=== PATIENT | female | born 1975 | race Two or more races ===

== ENCOUNTER 2024-11-04 04:30 | Emergency (ER) | payer BC, SELFPAY ==
[2024-11-04 04:45] VITALS: BP 130/91; PULSE 105; RESP 18; TEMP 37.2; O2SAT 98
--- NOTE | 2024-11-04 04:51 | EKG_ITS ---
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
--- NOTE | 2024-11-04 04:51 | PD.EDRME ---
Rapid Medical Screening Exam RME Arrival date/time: 11/04/24 04:30 Chief Complaint: Nausea/Vomiting/Diarrhea Vital signs: Vital Signs Temperature 99 F 11/04/24 04:45 Pulse Rate 105 H 11/04/24 04:45 Respiratory Rate 18 11/04/24 04:45 Blood Pressure 130/91 H 11/04/24 04:45 Pulse Oximetry (%) 98 11/04/24 04:45 RME Narrative: Nausea and vomiting x1 month, mild epigastric pain. hx HTN, prediabetes.
[2024-11-04] MEDS: ONDANSETRON ODT 4 MG TABRAP PO (05:02)
[2024-11-04 06:03] LABS: Basophils % (Auto) 0 % (0-2.5); Eosinophils % (Auto) 0 % (0-10); Hematocrit 37.8 % (36.0-46.0); Hemoglobin 13.1 g/dL (12.0-16.0); Immature Granulocytes % (Auto) 1 % (0-0); Lymphocytes % (Auto) 11 % (10-50); Mean Corpuscular HGB Conc 34.7 g/dl (31.0-37.0); Mean Corpuscular Hemoglobin 29.4 pg (25.0-35.0); Mean Corpuscular Volume 85 fL (80-100); Monocytes # (Auto) 0.4 Thou/mm3 (0.0-0.8); Monocytes % (Auto) 5 % (0-12); Neutrophils # (Auto) 7.6 Thou/mm3 (1.8-7.7); Neutrophils % (Auto) 83 % (37-80); Nucleated Red Blood Cell % 0 /100 WBC (0); Platelet Count 303 Thou/mm3 (140-440); RDW Standard Deviation 41.5 fL (36.4-46.3); Red Blood Count 4.45 Miln/mm3 (4.00-5.20); White Blood Count 9.1 Thou/mm3 (3.6-11.0)
[2024-11-04 06:29] LABS: Alanine Aminotransferase 25 U/L (10-49); Albumin/Globulin Ratio 1.4 (1.2-2.2); Alkaline Phosphatase 127 U/L (46-116); Anion Gap 15 (7-16); Aspartate Amino Transferase 22 U/L (0-34); BUN/Creatinine Ratio 11 Ratio (12-20); Bilirubin,Total 0.8 mg/dL (0.3-1.2); Blood Urea Nitrogen 17 mg/dL (9-23); Calcium 10.3 mg/dL (8.3-10.6); Calcium (Corrected) 10.3 mg/dL (8.5-10.1); Carbon Dioxide 21.8 mMol/L (20.0-31.0); Chloride 105 mMol/L (98-107); Creatinine (Component) 1.5 mg/dL (0.6-1.3); Globulin 3.6 gm/dL (2.3-3.5); Glucose 178 mg/dL (74-106); Lipase 319 U/L (12-53); Osmolality,Calculated 288 (275-295); Potassium 2.8 mMol/L (3.4-5.1); Sodium 142 mMol/L (136-145); Total Protein 8.6 gm/dL (5.7-8.2); Troponin I < 0.020 ng/mL (0.0-0.045); eGFR 43 See Note
[2024-11-04 06:34] LABS: Collection Type, Urine Clean Catch
--- NOTE | 2024-11-04 06:56 | PD.EDNV ---
Nausea/Vomit./Diarrhea-RME/HPI General Chief complaint: Nausea/Vomiting/Diarrhea Stated complaint: VOMITING Time Seen by Provider: 11/04/24 05:09 Arrival date/time: 11/04/24 04:30 RME / HPI RME / HPI Narrative: DR. ENCARNACION MAIN ED EVALUATION: Patient is a 41-year-old who states for over 1 months she has had intractable nausea and vomiting and states that she vomits even water as soon as she drinks it along with any food. She has been unsuccessful holding anything down and believes she has lost weight. She is also reported having a fever for couple days with several bouts intermittently during this time. She says she was sick a couple months ago with a slight cough and occasionally is a cough even now. She has central abdominal pain that is not getting better. She has no medical workup for this to this date. There is been no blood in the vomit. She continues to pee and believes she is actually peeing a lot. Related Data Home Medications ?Medication ?Instructions ?Recorded ?Confirmed amlodipine 5 mg tablet 5 mg PO QDAY 02/02/24 05/07/24 metoprolol succinate 100 mg 100 mg PO QDAY 02/02/24 05/07/24 tablet,extended release 24 hr naproxen 500 mg tablet,delayed 500 mg PO BID 02/02/24 05/07/24 release (EC-Naproxen) norgestrel 0.3 mg-ethinyl 1 tab PO QDAY 02/02/24 05/07/24 estradiol 30 mcg tablet (Low-Ogestrel (28)) tizanidine 6 mg capsule 6 mg PO BID PRN Pain, Mild 02/02/24 05/07/24 Held on 05/01/24. Instructions: Resume on 05/02/24. Allergies Allergy/AdvReac Type Severity Reaction Status Date / Time No Known Allergies Allergy Verified 11/04/24 04:31 Review of Systems Review of Systems Systems Reviewed: All systems reviewed, normal except as documented Narrative Review of Systems: Constitutional: POSITIVES: weight loss (see HPI), fevers Eyes: DENIES: loss of vision; Head/Ear/Nose: DENIES: loss of hearing. Throat: DENIES: dysphagia. Cardiovascular: DENIES: chest pain, dyspnea, or syncope. Respiratory: POSITIVES: slight cough DENIES: shortness of breath; Gastrointestinal: POSITIVES: nausea, vomiting, central abdominal pain DENIES: rectal bleeding or melena. Genitourinary: DENIES: dysuria (painful or difficult urination); Musculoskeletal: DENIES: arthralgia (pain in a joint); Skin: DENIES: rash; Neurological: DENIES: loss of function or movement; Psychiatric: DENIES: recent major life stressor, emotional problem, illicit drug use or abuse; Endocrinology: DENIES: weight change,; Hematologic/Lymphatic: DENIES: abnormal bruising. Allergic/Immunologic: DENIES: urticaria (hives). Past Medical History Past Medical History NEUROLOGIC: Positive Neurological Disorders and Migraine; Negative Seizures CARDIAC: Positive Cardiac Disorders, Hypercholesterolemia and Hypertension; Negative Congestive Heart Failure RESPIRATORY: Negative Chronic Obstructive Pulmonary Disease (COPD) GASTROINTESTINAL: Negative Gastrointestinal Disorders GENITOURINARY: Negative Genitourinary Disorders or Renal Disease REPRODUCTIVE: Positive Previous Pregnancies MUSCULOSKELETAL: Positive Musculoskeletal Disorders and Arthritis ENDOCRINE: Negative Endocrine Disorders, Diabetes Mellitus Type 1 or Diabetes Mellitus Type 2 HEMATOLOGIC: Negative Blood Disorders OTHER HISTORY: Positive Chicken Pox; Negative Autoimmune Disease, Blood Transfusions, Anesthesia Reactions, Measles, Mumps or Cancer Surgical History SURGICAL: Positive Oral Surgery (wisdom x4 extraction) Social History SMOKING STATUS: Never smoker SUBSTANCE USE: does not use ALCOHOL: Never ED Exam Narrative Physical exam: Physical Exam: General: The vital signs were reviewed. Patient is actively retching with a barf bag in place when I entered the room. the patient is non-toxic, in no apparent distress and appears healthy with a patent airway, no respiratory distress and has no apparent circulatory problems. Head & Scalp: Normocephalic, atraumatic. Face: Appears normal and is without lesions, deformity. Ears: Left external pinna appears normal. Right external pinna appears normal. Eyes: The sclera is anicteric. No obvious photophobia. The Left and Right Orbit/Lid/Conjunctiva appears normal without swelling, discoloration or injection. Nose: The nose is without deformity, discharge or tenderness; Throat: Appears normal. The mucous membranes are pink and moist without exudates, redness or mass seen. The tongue appears normal. Neck: The neck is supple and no apparent mass or adenopathy. Chest: The chest wall is normal in size and symmetry and has no chest wall tenderness or crepitus. The patient displays normal ventilator effort without retractions, accessory muscle use and has adequate air movement bilaterally with no wheezes and no rales. Cardiovascular: Regular rate and rhythm; No murmurs, rubs, or gallops; Gastrointestinal: The abdomen appears normal. No obvious hernias or mass. The abdomen has exquisite central epigastric pain on palpation is soft and benign, non-distended, with no pain, no guarding and no rebound tenderness. Bowel sounds are present and normal sounding. No CVA tenderness. Genitourinary: Back/Spine: Normal inspection nontender Extremities/Musculoskeletal/lymphatic: The bilateral upper and lower extremities are warm. There is no evidence of arterial insufficiency. There is no evidence of venous insufficiency/edema. The patient spontaneously moves bilateral upper and lower extremities with no pain and no limitation of movement. There is no apparent, injury or trauma. Skin: The skin is warm, dry and intact. No rashes. No petechia. No purpura. No abnormal bruising. The color is appropriate with no cyanosis. Mental status/Psychiatric: Mental status is appropriate for age. The patient has no apparent delusions, visual hallucinations, no apparent audible hallucinations. The patient has no apparent suicidal thoughts/ideation and no apparent homicidal thoughts/ideation. Neurological: The patient is awake, alert, interactive, cordial, cooperative and is oriented to name and situation. The patient follows commands and answers historical question with no impairment. There is no visual disturbance apparent. The pupils are equal and reactive bilaterally with normal eye movements and no diplopia The bilateral upper and lower extremities have normal strength, normal range of motion and normal functioning. The gait, station and balance appear to be baseline with no acute change Course Quality Measures none Orders Category Date Time Status EKG (ED ONLY) *Do not use* NOW Care 11/04/24 04:51 Completed Referral - Channel Worker Stat Cons 11/04/24 11:06 Active Transfer to another facility [Transfer/Discharge] Stat Discharge 11/04/24 11:[address] abdomen pelvis wo con Stat Exams 11/04/24 07:[address] head/brain wo con Stat Exams 11/04/24 07:08 Completed EKG (ED Only) Stat Exams 11/04/24 04:51 Draft US abdomen Stat Exams 11/04/24 07:08 Completed XR chest 1V portable Stat Exams 11/04/24 07:24 Completed BNP [B-Type Natriuretic Peptide] Stat Lab 11/04/24 12:08 Completed Beta Hydroxybutyrate Stat Lab 11/04/24 07:24 Completed Blood Culture (Lab) Stat Lab 11/04/24 07:24 Received CBC Stat Lab 11/04/24 05:40 Completed CMP [Comprehensive Metabolic Panel] Stat Lab 11/04/24 05:40 Completed HCG Qualitative,Urine Stat Lab 11/04/24 06:22 Completed Lactate (Lactic Acid) Stat Lab 11/04/24 07:24 Completed Lipase Stat Lab 11/04/24 05:40 Completed Troponin I Stat Lab 11/04/24 05:40 Completed Troponin I Stat Lab 11/04/24 12:08 Completed UA [Urinalysis] Stat Lab 11/04/24 06:22 Completed Venous Blood Gas Stat Lab 11/04/24 07:24 Completed HYDROmorphone INJ [Dilaudid Inj] Med 11/04/24 09:20 Discontinued 0.5 mg IVP X1 ONE HYDROmorphone INJ [Dilaudid Inj] Med 11/04/24 11:04 Discontinued 0.5 mg IVP X1 ONE Morphine Inj Med 11/04/24 07:11 Discontinued 4 mg IVP X1 ONE Ondansetron Inj [Zofran Inj] Med 11/04/24 07:11 Discontinued 4 mg IV X1 ONE Ondansetron Inj [Zofran Inj] Med 11/04/24 11:04 Discontinued 4 mg IV X1 ONE Ondansetron Odt [Zofran Odt] Med 11/04/24 04:54 Discontinued 4 mg PO X1 ONE POTASSIUM CHL 10 mEq IVPB [Kcl Ivpb] Med 11/04/24 07:11 Discontinued 10 meq in 100 ml IV Q1H Sodium Chloride 0.9% 1000 ml [Ns] 1,000 ml Med 11/04/24 08:09 Discontinued IV 150 mls/hr Sodium Chloride 0.9% 1000 ml [Ns] 1,000 ml Med 11/04/24 07:08 Discontinued IV 999 mls/hr cefTRIAXone/D5w 1gm IV premix [Rocephin/D5w 1gm IV Med 11/04/24 07:37 Discontinued premix] 1 gm in 50 ml IV X1 Reevaluation(s) Reevaluation #1: Reassessment at this time shows the patient is still actively vomiting. She states that in the last 24 hours she had 6 episodes so unknown if she has been keeping her medications down. Time: 11:00 Vital Signs Vital signs: Vital Signs Temperature 99 F 11/04/24 04:45 Pulse Rate 105 H 11/04/24 04:45 Respiratory Rate 18 11/04/24 04:45 Blood Pressure 130/91 H 11/04/24 04:45 Pulse Oximetry (%) 98 11/04/24 04:45 Nausea/Vomiting/Diarrhea MDM Narrative MDM Narrative:: Patient 49-year-old who has been ill for the for 1 month with intractable nausea vomiting for 1 month states he is unable to hold any fluids down and vomits as quickly as she drinks the fluids. She has had maybe a small cough several weeks ago and has intermittent chills possibly fevers for a day or 2 again very intermittently. She has never had anything like this before. Medical workup was initiated upon my initial evaluation. Though her vital signs revealed a tachycardia sinus of 09/[birth year]1930 initially saw her. She was in lots of pain. And she has had multiple episodes of retching and vomiting since she arrived. Medical workup revealed sinus tachycardic on initial evaluation and after 2 L of fluid her heart rate is into the 90s. White count was 9.1 hemoglobin 13.1 hematocrit 37.8 venous blood gas with pH is 7.50 pCO2 of 27. Sodium 142 potassium is low at 2.8 chloride 105 CO2 21.8 anion gap is 15 BUN 17 creatinine is slightly bumped at 1.5 note we have no old creatinine to compare to. Lactic acid came back at 1.7 calcium is slightly elevated 10.3. AST ALT and bilirubin is normal. BNP slightly elevated 128 total protein is elevated 8.6 probably secondary to dehydration lipase is elevated 319 of uncertain etiology. Beta hydroxybutyrate came back at 1.4 and is slightly elevated. Urine analysis which is reported to be a clean-catch came back with 129 white cells but note there are 11 squames present and 16 red cells making this less reliable. Reevaluation multiple times of this patient reveals continuous retching despite 3 doses of pain medicine and Zofran. After 2 L of fluid though the patient does look better. CT scan of the abdomen reveals a 5 mm distal ureteral stone with mild hydro present. Head CT was done because of complaints of headache which came back negative. Ultrasound of the gallbladder reveals no gallstones again there is some mild left hydro as seen on the CT scan. Patient was given 1 g of ceftriaxone 2 L of fluid and on the third liter bolus. We did try some ice chips as she was thirsty and dry has some more retching earlier currently at 1242 hrs. she is looking much better and I am guessing the hydration has contributed greatly to making her feel better not to mention the 3 doses of morphine. Talk to the transfer nurses at [facility] in [place] and [facility] in [place] and gave full reports to both of them discussing the cases. Later [facility] called back ask a few more questions and then accepted the patient in transfer. Patient was much more comfortable heart rate was down to 100s after almost 3 L of fluid. ILulú, am scribing for and in the presence of Dr. Encarnacion. Patient data External records reviewed:: [facility] previous records (Reviewed colonoscopy note by Dr. Chadwick, dated 05/01/24) Clinical information provided by:: patient Social determinants that could affect healthcare access:: none Patient has the following chronic illnesses:: hypertension How is presenting disease/condition affected by chronic disease/condition?: uneffected by Evaluation data The following diagnostics were reviewed and interpreted by me:: lab results, radiology exam(s) and EKG tracing(s) (EKG#1: EKG at 0458 hours. Interpreted by me: sinus tachycardia, rate 126, no STEMI) Lab and/or radiology exams considered but not ordered:: none Interpretation Summary: See above under MDM narrative. RADIOLOGY Procedure(s): XR chest 1V portable Accession Number(s): [id number] cc: Iglesia Encarnacion MD; Chano Crow MD; Farrukh Recinos MD~ Examination: AP chest single view TECHNIQUE: AP portable sitting chest single view Examination time:: November 04, 2024 at 0745 hours INDICATIONS: Intractable coughing this week FINDINGS: Normal heart size. Lungs are clear. Moderate osteopenia IMPRESSION: No pneumonia or pulmonary edema Dictated By: Chano Crow MD Procedure(s): CT head/brain wo con Accession Number(s): [id number] cc: Iglesia Encarnacion MD; Chano Crow MD; Farrukh Recinos MD~ Examination: CT brain head without contrast. 2-D sagittal coronal reconstructions Date and time of exam:November 04, 2024 at 0800 hours INDICATIONS: Intermittent headaches beginning 2 weeks ago CTDI: vol (mGy):47.8 DLP: (mGycm):980 Technique: Multiple CT axial sections of the brain have been obtained, 5 mm slice thickness. Contrast has not been administered. 2-D sagittal, coronal reconstructions have been obtained Low dose protocols were performed. One or more of the following dose reduction techniques were used; automated exposure control, adjustment of the mA and/or KV according to patient size, use of iterative reconstruction technique. Findings: No significant ventricular enlargement. 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 No mass effect or midline shift Basal cisterns are not remarkable. Fourth ventricle is midline. Cranial vault intact. Mild chronic mucosal thickening in the maxillary antra. 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 Dictated By: Chano Crow MD Procedure(s): CT abdomen pelvis wo [facility] Accession Number(s): [id number] cc: Iglesia Encarnacion MD; Chano Crow MD; Farrukh Recinos MD~ Examination: CT abdomen and pelvis without contrast. Coronal 3-D reconstructions. Sagittal 2-D reconstructions. Date and time of exam:November 04, 2024 0802 hours Comparison May 26, 2004 INDICATIONS: Epigastric pain and vomiting today CTDI: vol (mGy): 10.9 DLP: (mGycm): 623 Technique: Axial images of the abdomen have been obtained, 3 mm slice thickness Intravenous contrast material has not been administered. Low dose protocols were performed. One or more of the following dose reduction techniques were used; automated exposure control, adjustment of the mA and/or KV according to patient size, use of iterative reconstruction technique. Findings: Multiple probable liver cysts Fatty infiltration throughout the liver No definite gallstones No pancreatic mass Minimal nodular thickening left adrenal gland 2 mm lower pole left renal calculus Minimal left hydronephrosis secondary to 5 mm distal left ureteral calculus image 194 Aorta normal size Normal appendix No pelvic mass No bladder mass IMPRESSION: Minimal left hydronephrosis secondary to a 5 mm distal left ureteral calculus Dictated By: Chano Crow MD Procedure(s): US abdomen Accession Number(s): [id number] cc: Iglesia Encarnacion MD; Chano Crow MD; Farrukh Recinos MD~ Examination: Abdomen sonogram, complete Date and time of exam: November 04, 2024 at 0730 hours INDICATIONS: Vomiting epigastric pain beginning 2 months ago. Technique: Multiple real-time grayscale transabdominal sonographic images of the abdomen have been obtained. Findings: Normal gallbladder Normal common bile duct 0.5 cm Pancreatic head 2.0 cm Aorta not enlarged Liver 16.1 cm liver cysts, the largest 16 mm, 19 mm Normal hepatopedal portal venous flow Patent IVC Right kidney 9.6 cm and a cortical 1.4 cm Left kidney 10.7 cm renal cortex 2.4 cm Mild bilateral renal parenchymal scar formation Minimal left hydronephrosis Spleen 9.3 cm IMPRESSION: Benign liver cysts Minimal left hydronephrosis, please see the CT abdomen and pelvis report today Dictated By: Chano Crow MD Medications / Prescriptions Medications / Prescriptions considered but not ordered:: none Medication administrations:: Medication Administration History Discontinued Medications Hydromorphone HCl (Hydromorphone Inj 2 Mg/Ml Vial) 0.5 mg IVP X1 ONE Stop: 11/04/24 09:21 Last Admin: 11/04/24 09:45 Dose: 0.5 mg Documented By: RAMIN Hydromorphone HCl (Hydromorphone Inj 2 Mg/Ml Vial) 0.5 mg IVP X1 ONE Stop: 11/04/24 11:05 Last Admin: 11/04/24 11:28 Dose: 0.5 mg Documented By: RAMIN Sodium Chloride (Ns) 1,000 mls @ 150 mls/hr IV .Q6H40M ONE Stop: 11/04/24 14:48 Last Infusion: 11/04/24 13:42 Dose: Infused Documented By: Admin: 11/04/24 09:45 Dose: 150 mls/hr Documented By: RAMIN Sodium Chloride (Ns) 1,000 mls @ 999 mls/hr IV .Q1H1M ONE Stop: 11/04/24 08:08 Last Infusion: 11/04/24 09:30 Dose: Infused Documented By: Admin: 11/04/24 08:22 Dose: 999 mls/hr Documented By: RAMIN Potassium Chloride (Kcl Ivpb) 10 meq in 100 mls @ 100 mls/hr IV Q1H STEVE Stop: 11/04/24 11:10 Last Infusion: 11/04/24 13:42 Dose: Infused Documented By: Admin: 11/04/24 12:30 Dose: 100 mls/hr Documented By: Infusion: 11/04/24 11:45 Dose: Infused Documented By: Admin: 11/04/24 10:45 Dose: 100 mls/hr Documented By: Infusion: 11/04/24 09:30 Dose: Infused Documented By: Admin: 11/04/24 08:27 Dose: 100 mls/hr Documented By: RAMIN Ceftriaxone Sodium/Dextrose (Rocephin/D5w 1gm Iv Premix) 1 gm in 50 mls @ 100 mls/hr IV X1 ONE Stop: 11/04/24 08:06 Last Infusion: 11/04/24 10:23 Dose: Infused Documented By: Admin: 11/04/24 09:46 Dose: 100 mls/hr Documented By: RAMIN Morphine Sulfate (Morphine Sulf Inj 10 Mg/Ml Vial) 4 mg IVP X1 ONE Stop: 11/04/24 07:12 Last Admin: 11/04/24 08:23 Dose: 4 mg Documented By: RAMIN Ondansetron HCl (Ondansetron Odt 4 Mg Tabrap) 4 mg PO X1 ONE; Protocol Stop: 11/04/24 04:55 Last Admin: 11/04/24 05:02 Dose: 4 mg Documented By: FENG Ondansetron HCl (Ondansetron Inj 2 Mg/Ml Inj 2 Ml) 4 mg IV X1 ONE; Protocol Stop: 11/04/24 07:12 Last Admin: 11/04/24 08:33 Dose: 4 mg Documented By: RAMIN Ondansetron HCl (Ondansetron Inj 2 Mg/Ml Inj 2 Ml) 4 mg IV X1 ONE; Protocol Stop: 11/04/24 11:05 Last Admin: 11/04/24 11:27 Dose: 4 mg Documented By: RAMIN see above Consultations Consultation(s) initiated? (list below): Yes Consultation #1 (Physician, Specialty, Details): Discussed test HPI, PMHx, lab, radiology results and/or management with urologist from [facility]. Will accept the patient for transfer. Patient will be kept NPO. Time: 12:00 Consultation #2 (Physician, Specialty, Details): Discussed test HPI, PMHx, lab, radiology results and/or management with the emergency department doctor at [facility] Dr. Petersen. Will accept the patient for tranfer ER to ER. Time: 12:24 Diagnosis Nausea Differential Diagnosis: traveler's diarrhea, food poisoning, gastroenteritis, clostridium difficile infection and dehydration Most likely diagnosis given after review of the tests above:: Intractable vomiting Acute dehydration Acute hypokalemia Abdominal pain Elevated lipase UTI Admission Indicated Admission indicated?: not indicated Explain why admission is indicated or not indicated:: Patient needs higher level of care and will be transferred. Admission Request Was there a request for admission?: No Disposition Plan Disposition Plan: Transfer Critical Care Time Critical Care Time Critical Care Time: Yes Total Critical Care Time (min.): 45 Attestation: The high probability of sudden, clinically significant deterioration in the patient?s condition required the highest level of my preparedness to intervene urgently. The services I provided to this patient were to treat and/or prevent clinically significant deterioration. Services included the following: chart data review, reviewing nursing notes and/or old charts, documentation time, marine engineering consultant collaboration regarding findings and treatment options, medication orders and management, direct patient care, vital sign assessments and ordering, interpreting and reviewing diagnostic studies and lab tests. Aggregate critical care time includes only time during which I was engaged in work directly related to the patient?s care, as described above, whether at bedside or elsewhere in the Emergency Department. It did not include time spent performing other reported procedures or the services of residents, students, nurses or physician assistants. Discharge Plan Plan Patient Disposition: [facility] Being Transferred to: [facility] Service Needed for Transfer: Urology Prescriptions/Referrals Prescriptions/Med Rec: No Action naproxen [EC-Naproxen] 500 mg tablet,delayed release (DR/EC) 500 mg PO BID Low-Ogestrel (28) 0.3-30 mg-mcg tablet 1 tab PO QDAY tizanidine 6 mg capsule 6 mg PO BID PRN (Reason: Pain, Mild) metoprolol succinate 100 mg tablet extended release 24 hr 100 mg PO QDAY amlodipine 5 mg tablet 5 mg PO QDAY Referrals: Farrukh Recinos MD [Primary Care Provider] - In 1 week Problem List Clinical Impression: Intractable vomiting, Acute dehydration, Acute hypokalemia, Abdominal pain, Elevated lipase, Urinary tract infection, Calculus of distal left ureter Patient/Caregiver Discharge Instructions Print Language: East Timorese Stand Alone Forms: [employer] Award Info., Patient Portal Info Letter
--- NOTE | 2024-11-04 07:08 | XR_ITS ---
Examination: CT brain head without contrast. 2-D sagittal coronal reconstructions Date and time of exam:November 04, 2024 at 0800 hours INDICATIONS: Intermittent headaches beginning 2 weeks ago CTDI: vol (mGy):47.8 DLP: (mGycm):980 Technique: Multiple CT axial sections of the brain have been obtained, 5 mm slice thickness. Contrast has not been administered. 2-D sagittal, coronal reconstructions have been obtained Low dose protocols were performed. One or more of the following dose reduction techniques were used; automated exposure control, adjustment of the mA and/or KV according to patient size, use of iterative reconstruction technique. Findings: No significant ventricular enlargement. 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 No mass effect or midline shift Basal cisterns are not remarkable. Fourth ventricle is midline. Cranial vault intact. Mild chronic mucosal thickening in the maxillary antra. 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
--- NOTE | 2024-11-04 07:08 | XR_ITS ---
Examination: CT abdomen and pelvis without contrast. Coronal 3-D reconstructions. Sagittal 2-D reconstructions. Date and time of exam:November 04, 2024 0802 hours Comparison May 26, 2004 INDICATIONS: Epigastric pain and vomiting today CTDI: vol (mGy): 10.9 DLP: (mGycm): 623 Technique: Axial images of the abdomen have been obtained, 3 mm slice thickness Intravenous contrast material has not been administered. Low dose protocols were performed. One or more of the following dose reduction techniques were used; automated exposure control, adjustment of the mA and/or KV according to patient size, use of iterative reconstruction technique. Findings: Multiple probable liver cysts Fatty infiltration throughout the liver No definite gallstones No pancreatic mass Minimal nodular thickening left adrenal gland 2 mm lower pole left renal calculus Minimal left hydronephrosis secondary to 5 mm distal left ureteral calculus image 194 Aorta normal size Normal appendix No pelvic mass No bladder mass IMPRESSION: Minimal left hydronephrosis secondary to a 5 mm distal left ureteral calculus
--- NOTE | 2024-11-04 07:08 | XR_ITS ---
Examination: Abdomen sonogram, complete Date and time of exam: November 04, 2024 at 0730 hours INDICATIONS: Vomiting epigastric pain beginning 2 months ago. Technique: Multiple real-time grayscale transabdominal sonographic images of the abdomen have been obtained. Findings: Normal gallbladder Normal common bile duct 0.5 cm Pancreatic head 2.0 cm Aorta not enlarged Liver 16.1 cm liver cysts, the largest 16 mm, 19 mm Normal hepatopedal portal venous flow Patent IVC Right kidney 9.6 cm and a cortical 1.4 cm Left kidney 10.7 cm renal cortex 2.4 cm Mild bilateral renal parenchymal scar formation Minimal left hydronephrosis Spleen 9.3 cm IMPRESSION: Benign liver cysts Minimal left hydronephrosis, please see the CT abdomen and pelvis report today
--- NOTE | 2024-11-04 07:24 | XR_ITS ---
Examination: AP chest single view TECHNIQUE: AP portable sitting chest single view Examination time:: November 04, 2024 at 0745 hours INDICATIONS: Intractable coughing this week FINDINGS: Normal heart size. Lungs are clear. Moderate osteopenia IMPRESSION: No pneumonia or pulmonary edema
[2024-11-04 07:29] LABS: Bacteria,Urine 2+; Bilirubin,Urine Negative (Negative); Blood,Urine Trace (Negative); Clarity,Urine Turbid (Clear/Hazy); Color,Urine Yellow (Lt Yel-Yel); Glucose, Urine Negative (Negative); Hyaline Casts,Urine < 1 /hpf (0-1); Ketones,Urine 2+ (Negative); Leukocyte Esterase,Urine Positive (Negative); Nitrite,Urine Negative (Negative); Protein,Urine 2+ (Neg - Trace); RBC,Urine 16 /hpf (0-3); Specific Gravity,Urine 1.017 (1.001-1.035); Squamous Epithelial Cell,Urine 11 /hpf (0-5); Transitional Epi Cells,Urine < 1 /hpf (0-5); WBC,Urine 129 /hpf (0-5)
[2024-11-04 07:33] LABS: HCG Qualitative,Urine Negative
[2024-11-04 07:34] LABS: Base Excess, Venous -1 (-3-3); Lactate (Lactic Acid) 1.7 mMol/L (0.4-2.0); O2 Saturation, Venous 92 % (96-97); PCO2, Venous 27 mmHg (36-56); PO2, Venous 55 mmHg (15-58)
[2024-11-04 07:38] LABS: Beta Hydroxybutyrate 1.4 mmol/L (<0.6)
[2024-11-04] MEDS: SODIUM CHLORIDE 0.9% 1000 ML 1,000 ML 999 ML IV (08:22)
[2024-11-04] MEDS: MORPHINE SULF INJ 10 MG/ML VIAL 4 MG IVP (08:23)
[2024-11-04] MEDS: POTASSIUM CHL 10 mEq IVPB 10 MEQ/100 ML BAG 100 MEQ IV ×3 (08:27→12:30)
[2024-11-04] MEDS: ONDANSETRON INJ 2 MG/ML INJ 2 ML 4 MG IV ×2 (08:33→11:27)
[2024-11-04 08:58] VITALS: BP 187/84; PULSE 114; RESP 16; TEMP 36.9; O2SAT 100
--- NOTE | 2024-11-04 09:17 | PC.NURSE ---
Patient states pain 10/10 still after administration of morphine. Informed ER provider and received verbal order for 0.5mg hydromorphone IV x 1.
[2024-11-04] MEDS: HYDROmorphone INJ 2 MG/ML VIAL 0.5 MG IVP ×2 (09:45→11:28)
[2024-11-04] MEDS: SODIUM CHLORIDE 0.9% 1000 ML 1,000 ML 150 ML IV (09:45)
[2024-11-04] MEDS: cefTRIAXone/D5w 1gm IV premix 1 GM/50 ML BAG IV (09:46)
[2024-11-04 10:49] VITALS: BP 185/92; PULSE 107; RESP 14; TEMP 36.7; O2SAT 99
[2024-11-04 10:51] VITALS: BMI 30.9
--- NOTE | 2024-11-04 11:05 | PC.NURSE ---
Patient taken to restroom via wheelchair and BIB. Patient states pain is 9/10. Informed ER provider and received verbal order for 0.5 mg hydromorphone and 4 mg zofran IV.
--- NOTE | 2024-11-04 11:47 | PC.CM ---
I received a call from Kaylee asking me to push over orders to [facility]. I pushed images at this time.
--- NOTE | 2024-11-04 11:49 | PC.CC ---
Addendum entered by Kaylee Jacob 11/04/24 12:56: At 12:19 pm, CC received a phone call from [facility]-Transfer CenterGladis who reported that patient was accepted to [facility], ED to ED; patient accepted under the care of Dr. Terri Petersen, and urologist on-call requested that patient be NPO. CC notified Dr. Encarnacion, and law tutorOh. CC completed transfer packet, imaging disc and scheduled EMS for 1340. Original Note: At 11:06 Am, Territory Sales Manager, Kaylee informed by Dr. Encarnacion that patient needs a higher level of care transfer for urology services. Per Dr. Encarnacion, patient has a distal ureteral stone and UTI. At 11:24 am, CC contacted [facility] and spoke to [facility] who declined patient due to not having urology services. At 11:24 am, CC contacted [facility] and spoke to transfer center Onel who requested a transfer packet (facesheet, images, CT reads, and ED note). CC completed request. At 11:44 am, CC contacted [facility] and spoke to transfer centerBritta who requested that transfer packet be fax.
[2024-11-04 12:11] VITALS: BP 153/92; PULSE 97; RESP 16; O2SAT 99
[2024-11-04 12:38] LABS: B-Type Natriuretic Peptide 128 pg/mL (0-100); Troponin I < 0.020 ng/mL (0.0-0.045)
== END 2024-11-04 13:44 | disposition short-term general hospital (02) ==
PROVIDERS: Physician Assistant; Emergency Provider Emergency Medicine; PCP Family Medicine
DX: E86.0 Dehydration (principal); E87.6 Hypokalemia; N13.6 Pyonephrosis; K76.89 Other specified diseases of liver; R00.0 Tachycardia, unspecified; R51.9 Headache, unspecified; R05.9 Cough, unspecified; I10 Essential (primary) hypertension; E78.00 Pure hypercholesterolemia, unspecified; Z75.1 Person awaiting admission to adequate facility elsewhere
CPT/HCPCS: 36415; 70450; 71045; 74176; 76700; 80053; 81001; 81025; 82010; 82803; 83605; 83690; 83880; 84484; 85025; 87040; 93005; 96361; 96365; 96367; 96375; 99291; J0696; J2270; J2405; J3480; J3490; J7030; Q0162

== ENCOUNTER 2025-01-02 21:31 | Inpatient (IN) | payer SELFPAY ==
[2025-01-02 21:33] VITALS: BMI 29.2
[2025-01-02 22:45] VITALS: BP 143/78; PULSE 79; RESP 16; TEMP 36.8; O2SAT 96
--- NOTE | 2025-01-02 23:55 | XR_ITS ---
Examination: CTA carotids with intravenous contrast CTA brain, head with intravenous contrast. 2-D sagittal, coronal reconstructions. 3-D reconstructions. Exam date and time: January 03, 2025 0011 hours INDICATIONS: Shoulder, onset focal neurologic deficit today CTDI: vol (mGy) 11.8 DLP: (mGycm) 447 Technique: Multiple CTA axial brain, head carotid images post intravenous contrast injection 75 cc, [id number]. 2-D sagittal, coronal reconstructions. 3-D reconstructions, 3-D post processing including vascular maximum intensity projection images. Low dose protocols were performed. One or more of the following dose reduction techniques were used; automated exposure control, adjustment of the mA and/or KV according to patient size, use of iterative reconstruction technique. Findings: 90% stenosis origin right vertebral artery, coronal image 105 No significant stenosis left vertebral artery No significant common carotid carotid bifurcation or internal carotid artery stenoses No cerebral large vessel arterial occlusions 80% stenosis left posterior cerebral artery IMPRESSION: 90% stenosis origin right vertebral artery, recommend carotid vertebral Doppler sonography follow-up No cerebral arthritis lower third conclusions 80% stenosis left posterior cerebral artery junction P1 and P2 segments
--- NOTE | 2025-01-02 23:55 | XR_ITS ---
Examination: CT brain head without contrast. 2-D sagittal coronal reconstructions Date and time of exam:January 03, 2025 0003 hours INDICATIONS: Stroke alert, onset focal neurologic deficit today CTDI: vol (mGy):48.8 DLP: (mGycm):972 Technique: Multiple CT axial sections of the brain have been obtained, 5 mm slice thickness. Contrast has not been administered. 2-D sagittal, coronal reconstructions have been obtained Low dose protocols were performed. One or more of the following dose reduction techniques were used; automated exposure control, adjustment of the mA and/or KV according to patient size, use of iterative reconstruction technique. Findings: No significant ventricular enlargement. Intra-axial or extra-axial hemorrhage density is not seen. No mass effect or midline shift Basal cisterns are not remarkable. Fourth ventricle is midline. Cranial vault intact. Impression: Negative for acute hemorrhage, mass effect or midline shift
--- NOTE | 2025-01-02 23:56 | PD.EDRME ---
Rapid Medical Screening Exam E Arrival date/time: 01/02/25 21:31 49F with history of HTN and kidney stones presents to ED with sudden AMS starting today including slurred speech. Patient had kidney stones and was transferred from here 2 months ago. Patient and family members deny alcohol/drug use. Chief Complaint: Back Pain/Injury Vital signs: Vital Signs Temperature 98.3 F 01/02/25 22:45 Pulse Rate 79 01/02/25 22:45 Respiratory Rate 16 01/02/25 22:45 Blood Pressure 143/78 H 01/02/25 22:45 Pulse Oximetry (%) 96 01/02/25 22:45 Oxygen Delivery Method Room Air 01/02/25 22:45
--- NOTE | 2025-01-02 23:58 | PC.NURSE ---
Case Consult 01/02/2025 23:58:19 [facility] Case # [id number] has been created.
[2025-01-03] VITALS (14 sets, daily range): BP systolic 104–162; BP diastolic 67–98; PULSE 69–95; RESP 10–21; TEMP 36.4–37.1; O2SAT 94–100
--- NOTE | 2025-01-03 00:01 | PD.EDBACK ---
ED Back Injury Pain RME/HPI General Chief Complaint: Back Pain/Injury Stated Complaint: FEVER, BACK RADIATING TO BACK, HX OF KIDNEY STONES Arrival date/time: 01/02/25 21:31 RME / HPI RME / HPI Narrative: 01/02/25 21:31 49F with history of HTN and kidney stones presents to ED with sudden AMS starting today including slurred speech. Patient had kidney stones and was transferred from here 2 months ago. Patient and family members deny alcohol/drug use. DR. MIKE?S MAIN ED EVALUATION: 49-year-old female with history of presenting to the emergency department via private auto who is presenting for stated complaint of or any other associated symptoms or medical complaints. - PMH: HTN, Kidney Stones - PSH: Denies - Social history: Denies - Current medications: Reviewed PCP is , MD Related Data Home Medications ?Medication ?Instructions ?Recorded ?Confirmed amlodipine 5 mg tablet 5 mg PO QDAY 02/02/24 05/07/24 metoprolol succinate 100 mg 100 mg PO QDAY 02/02/24 05/07/24 tablet,extended release 24 hr naproxen 500 mg tablet,delayed 500 mg PO BID 02/02/24 05/07/24 release (EC-Naproxen) norgestrel 0.3 mg-ethinyl 1 tab PO QDAY 02/02/24 05/07/24 estradiol 30 mcg tablet (Low-Ogestrel (28)) tizanidine 6 mg capsule 6 mg PO BID PRN Pain, Mild 02/02/24 05/07/24 Held on 05/01/24. Instructions: Resume on 05/02/24. Allergies Allergy/AdvReac Type Severity Reaction Status Date / Time No Known Allergies Allergy Verified 01/02/25 21:33 Review of Systems Review of Systems Systems Reviewed: All systems reviewed, normal except as documented Course Orders Category Date Time Status Bedside Blood Glucose NOW Care 01/02/25 23:55 Active Miller Wood Flour NOW Care 01/02/25 23:55 Active Continuous Pulse Oximetry NOW Care 01/02/25 23:55 Active EKG (ED ONLY) *Do not use* NOW Care 01/02/25 23:55 Active In and Out Catheter NEEDED Care 01/02/25 23:55 Active Insert IV NOW Care 01/02/25 23:55 Active NIH Stroke Scale now Care 01/02/25 23:55 Active NPO NOW Care 01/02/25 23:55 Active Nurse Swallow Screen x1 Care 01/02/25 23:55 Active Consult to Neurology / Tele-Neurology Routine Cons 01/02/25 23:[address] angio stroke protocol Stat Exams 01/02/25 23:[address] stroke protocol Stat Exams 01/02/25 23:55 Ordered EKG (ED Only) Stat Exams 01/02/25 23:55 Ordered Alcohol, Blood Medical Stat Lab 01/02/25 23:55 Ordered Ammonia Stat Lab 01/02/25 23:56 Ordered CBC Stat Lab 01/02/25 23:55 Ordered Comprehensive Metabolic Panel Stat Lab 01/02/25 23:55 Ordered Drug Screen,Urine Stat Lab 01/02/25 23:55 Ordered HCG Titer if Positive Stat Lab 01/02/25 23:55 Ordered Magnesium Stat Lab 01/02/25 23:55 Ordered Partial Thromboplastin Time Stat Lab 01/02/25 23:55 Ordered Prothrombin Time with INR Stat Lab 01/02/25 23:55 Ordered Troponin I Stat Lab 01/02/25 23:55 Ordered Urinalysis Stat Lab 01/02/25 23:55 Ordered Urine Culture Stat Lab 01/02/25 23:55 Ordered Ondansetron Inj [Zofran Inj] Med 01/02/25 23:55 Ordered 4 mg IV Q4HR PRN Oxygen Delivery NOW RT 01/02/25 23:55 Active Vital Signs Vital signs: Vital Signs Temperature 98.3 F 01/02/25 22:45 Pulse Rate 79 01/02/25 22:45 Respiratory Rate 16 01/02/25 22:45 Blood Pressure 143/78 H 01/02/25 22:45 Pulse Oximetry (%) 96 01/02/25 22:45 Oxygen Delivery Method Room Air 01/02/25 22:45 Back Pain / Injury MDM Narrative MDM Narrative:: Scribe Attestation: 01/02/2025 Subha Francis am scribing for and in the presence of Dr. Mike. Provider Notation: Although this document has been carefully reviewed, there may still be some phonetic and other typographical errors.? These errors are purely grammatical due to imperfections in the software program and should not be construed in any way to compromise the substance of the patient's medical care during this visit. BERTRAND: Differential diagnoses include Patient data External records reviewed:: [facility] previous records (Reviewed prior ED records from 11/04/24. Patient was seen for Abdominal pain.) Clinical information provided by:: patient Evaluation data The following diagnostics were reviewed and interpreted by me:: radiology exam(s) Lab and/or radiology exams considered but not ordered:: None Interpretation Summary: RADIOLOGY Head CT: Medications / Prescriptions Medications or Prescriptions considered but not ordered:: None Medication administrations:: Medication Administration History Ondansetron HCl (Ondansetron Inj 2 Mg/Ml Inj 2 Ml) 4 mg IV Q4HR PRN PRN Reason: NAUSEA OR VOMITING Stop: 02/01/25 23:54 See above if any Consultations Consultation(s) initiated? (list below): Yes Discharge Plan Prescriptions/Referrals Prescriptions/Med Rec: No Action naproxen [EC-Naproxen] 500 mg tablet,delayed release (DR/EC) 500 mg PO BID Low-Ogestrel (28) 0.3-30 mg-mcg tablet 1 tab PO QDAY tizanidine 6 mg capsule 6 mg PO BID PRN (Reason: Pain, Mild) metoprolol succinate 100 mg tablet extended release 24 hr 100 mg PO QDAY amlodipine 5 mg tablet 5 mg PO QDAY Referrals: No Primary/Family,Physician [Primary Care Provider] - In 1 week Patient/Caregiver Discharge Instructions Print Language: Burmese
[2025-01-03 00:07] LABS: Collection Type, Urine Clean Catch; Squamous Epithelial Cell,Urine 0 /hpf (0-5)
--- NOTE | 2025-01-03 00:11 | PD.EDAMS ---
Altered Mental Status RME/HPI General Chief Complaint: Back Pain/Injury Stated Complaint: FEVER, BACK RADIATING TO BACK, HX OF KIDNEY STONES Source: family and EMS Arrival date/time: 01/02/25 21:31 Mode of arrival: EMS Limitations: altered mental status RME / HPI RME / HPI narrative: 01/02/25 21:31 49F with history of HTN and kidney stones presents to ED with sudden AMS starting today including slurred speech. Patient had kidney stones and was transferred from here 2 months ago. Patient and family members deny alcohol/drug use. DR. MIKE?S MAIN ED EVALUATION: 49-year-old female with history of Migraine, Hypercholesterolemia, Hypertension, and Arthritis BIB presenting to the emergency department via private auto who is presenting for stated complaint of altered mental status x 4-5 hours. states patient took a pain pill for abdominal pain, but is unsure of what the medication is. Denies any family history of stroke or seizure. Denies any other associated symptoms or medical complaints. - PMH: Migraine, Hypercholesterolemia, Hypertension, Arthritis - PSH: Denies - Social history: Denies - Current medications: Reviewed PCP is Unknown MD complaint: altered mental status Onset (ago): hour(s) Time: 19:00 Timing confirmed by: spouse Context: unknown Treatments prior to arrival: glucose Related Data Home Medications ?Medication ?Instructions ?Recorded ?Confirmed amlodipine 5 mg tablet 5 mg PO QDAY 02/02/24 05/07/24 metoprolol succinate 100 mg 100 mg PO QDAY 02/02/24 05/07/24 tablet,extended release 24 hr naproxen 500 mg tablet,delayed 500 mg PO BID 02/02/24 05/07/24 release (EC-Naproxen) norgestrel 0.3 mg-ethinyl 1 tab PO QDAY 02/02/24 05/07/24 estradiol 30 mcg tablet (Low-Ogestrel (28)) tizanidine 6 mg capsule 6 mg PO BID PRN Pain, Mild 02/02/24 05/07/24 Held on 05/01/24. Instructions: Resume on 05/02/24. Allergies Allergy/AdvReac Type Severity Reaction Status Date / Time No Known Allergies Allergy Verified 01/02/25 21:33 Review of Systems Review of Systems ROS Unobtainable: unobtainable due to mental status Past Medical History Past Medical History NEUROLOGIC: Positive Neurological Disorders and Migraine CARDIAC: Positive Cardiac Disorders, Hypercholesterolemia and Hypertension REPRODUCTIVE: Positive Previous Pregnancies MUSCULOSKELETAL: Positive Musculoskeletal Disorders and Arthritis OTHER HISTORY: Positive Chicken Pox Surgical History SURGICAL: Positive Oral Surgery (wisdom x4 extraction) Social History SMOKING STATUS: Never smoker SUBSTANCE USE: does not use ED Exam General Limitations: Present altered mental status General appearance: Present other (Open try spontaneously looks around the room. Potentially causing her legs. Answers to my voice.) Head Head exam: Present atraumatic and normocephalic Eye Eye exam: Present PERRL, EOMI and miosis; Absent scleral icterus, conjunctival injection, mydriasis or periorbital tenderness ENT ENT exam: Present normal exam, normal oropharynx, mucous membranes dry and normal external ear exam; Absent TM's normal bilaterally Neck Neck exam: Present normal inspection, full ROM and trachea midline; Absent tenderness, meningismus or lymphadenopathy Chest Chest inspection: Present normal inspection and symmetric chest wall rise; Absent tenderness or rash Respiratory Respiratory exam: Present normal lung sounds bilaterally; Absent respiratory distress, wheezes or accessory muscle use Cardiovascular Cardiovascular exam: Present regular rate, normal rhythm and normal heart sounds; Absent irregular rhythm Abdominal Exam Abdominal exam: Present soft; Absent distention, tenderness, guarding, rebound or ascites Rectal Exam Rectal exam: Present deferred External exam: Present normal external exam; Absent erythema, tenderness or swelling Extremities Exam Extremities exam: Present normal inspection, full ROM, tenderness, normal capillary refill and pedal edema Back Exam Back exam: Present normal inspection Neurological Exam Neurological exam: Present other (1A: Level of Consciousness - Requires repeated stimulation to arouse + 2 1B: Ask Month and Age - Aphasic + 2 1C: Blink Eyes & Squeeze Hands - Performs 0 Tasks + 2 2: Test Horizontal Extraocular Movements - Normal + 0 3: Test Visual Donaldson - No Visual Loss + 0 4: Test Facial Palsy (Use Grimace if Obt) Skin Skin exam: Present warm and dry; Absent rash or diaphoresis Course Course Course Narrative: 5059: Stroke alert called. 0000: Pt to CT scan. Patient returned from CAT scan and teleneurology At the bedside doing the neuro exam with the family present. Last known normal 5 hours prior to my arrival No tPA candidate. 0030: rectal temp is 97.9. Discussed with the patient's family. At this time they do not want to do a lumbar puncture they want to see the patient in get better in the morning. We discussed risks and benefits and he still agrees to this plan. Chest x-ray has been ordered to aid in determining etiology of fever. Refer to ROS for associated respiratory symptoms. See physical exam for additional information if not listed in ROS. Patient's agrees with metabolic workup. 0430: Respiratory rate 7-8 and pupils are not pinpoint. The patient otherwise increases respiratory rate with stimuli. Will start Narcan and Narcan drip. Will check 4 hour tylenol level. 0500: Discussed the hospitalist at the bedside. They also feel that she is much more awake after giving the Narcan however at this time they feel that with the such a high elevation in her white count that she may have an infected stones. They recommend Meropenem. They do not feel the patient should be admitted here and need transfer for Urology Services. I had a long discussion with the again regarding the lumbar puncture. In order to do this lumbar puncture adequately I would need to possibly intubate and completely sedate and/or paralyze this patient since she is moving with me even trying to examine her. At this time the does not want the lumbar puncture still and or intubation if not needed. 49-year-old female presenting to the emergency department with history of hypertension, status post bilateral stent placement 2 months ago at [facility] presenting to the emergency department with altered mental status that started approximately at 7 PM. In the emergency department the patient has no fever and otherwise is not hypotensive-Per tensive, tachycardic, or bradycardic. She does not have a stiff neck. The does state that she did take a pain medicine prior to arrival. Unclear etiology of the source of her altered mental status and her metabolic workup is in process. I had a clear conversation with regarding possible need for lumbar puncture and at this time he still does not want that done. The patient has not spiked a fever however I am not sure what medication she actually took but her drug screen is only positive for opioids. She is placed on a Narcan drip after responding more to Narcan. The is still pretty adamant that he does not want lumbar puncture and if she did need 1 she would need to be intubated so that I could completely paralyze her. 0600: Care transferred to Dr. Trevino (emergency physician). Results and treatment plan discussed. They will assume the care of the patient at this time and will follow the patient, pending transfer. Quality Measures Suspected type of Stroke: Unknown at this time Tenecteplase given: Reason(s) TPA not given: Outside the time window not given stroke Orders Category Date Time Status Bedside Blood Glucose NOW Care 01/02/25 23:55 Active Bedside COVID-19 Antigen Test NOW Care 01/03/25 05:42 Active COVID-19 Screening Questionnaire NOW Care 01/03/25 05:40 Active [employer] Consultant NOW Care 01/02/25 23:55 Active Continuous Pulse Oximetry NOW Care 01/02/25 23:55 Completed Continuous Pulse Oximetry STAT Care 01/03/25 00:47 Completed EKG (ED ONLY) *Do not use* NOW Care 01/02/25 23:55 Completed In and Out Catheter NEEDED Care 01/02/25 23:55 Active Insert IV NOW Care 01/02/25 23:55 Active NIH Stroke Scale now Care 01/02/25 23:55 Active NPO NOW Care 01/02/25 23:55 Active NPO STAT Care 01/03/25 00:47 Active Nurse Swallow Screen x1 Care 01/02/25 23:55 Active Strict Intake and Output Routine Care 01/03/25 00:47 Ordered Consult to Neurology / Tele-Neurology Routine Cons 01/02/25 23:[address] abdomen pelvis wo con Stat Exams 01/03/25 00:[address] angio stroke protocol Stat Exams 01/02/25 23:[address] stroke protocol Stat Exams 01/02/25 23:55 Taken EKG (ED Only) Stat Exams 01/02/25 23:55 Ordered ABG [Arterial Blood Gas] Stat Lab 01/03/25 04:27 Completed Acetaminophen Stat Lab 01/03/25 05:30 Received Alcohol, Blood Medical Stat Lab 01/02/25 23:55 Completed Ammonia Stat Lab 01/02/25 23:56 Completed B-Type Natriuretic Peptide Stat Lab 01/03/25 00:08 Completed Blood Culture (Lab) Stat Lab 01/03/25 01:09 Received CBC Stat Lab 01/02/25 23:55 Completed Comprehensive Metabolic Panel Stat Lab 01/02/25 23:55 Completed Drug Screen,Urine Stat Lab 01/02/25 23:59 Completed HCG Titer if Positive Stat Lab 01/02/25 23:55 Completed LDH (Lactate Dehydrogenase) Stat Lab 01/03/25 00:08 Completed Lactate (Lactic Acid) Stat Lab 01/03/25 01:14 Completed Lipase Stat Lab 01/03/25 00:08 Completed Magnesium Stat Lab 01/02/25 23:55 Completed Partial Thromboplastin Time Stat Lab 01/02/25 23:55 Completed Phosphorous Stat Lab 01/03/25 00:08 Completed Procalcitonin Stat Lab 01/03/25 00:08 Completed Prothrombin Time with INR Stat Lab 01/02/25 23:55 Completed Troponin I Stat Lab 01/02/25 23:55 Completed Urinalysis Stat Lab 01/02/25 23:59 Completed Urinalysis Stat Lab 01/03/25 00:47 Ordered Urine Culture Stat Lab 01/02/25 23:59 Received VBG [Venous Blood Gas] Stat Lab 01/03/25 05:30 Completed Aspirin Chew Med 01/03/25 02:40 Discontinued 324 mg PO X1 ONE Clopidogrel [Plavix] Med 01/03/25 02:40 Discontinued 75 mg PO X1 ONE Dextrose 5%-Water [D5w] 498 ml Med 01/03/25 04:08 Active NALOXONE INJ (Syringe) [Narcan Inj (Syringe)] 2 mg IV 10 mls/hr LORazepam [Ativan Inj] Med 01/03/25 00:38 Discontinued 2 mg IVP X1 ONE Meropenem Inj [Merrem Inj] 1,000 mg Med 01/03/25 05:05 Discontinued SODIUM CHLORIDE 0.9% (Popper) [Ns 0.9% (P)] 50 ml IV X1 Morphine Inj Med 01/03/25 00:46 Discontinued 4 mg IVP X1 ONE NALOXONE INJ (Syringe) [Narcan Inj (Syringe)] Med 01/03/25 00:26 Discontinued 2 mg .ROUTE .STK-MED ONE NALOXONE INJ (Syringe) [Narcan Inj (Syringe)] Med 01/03/25 00:28 Discontinued 2 mg IV X1 ONE NALOXONE INJ (Syringe) [Narcan Inj (Syringe)] Med 01/03/25 04:21 Discontinued 2 mg IV X1 ONE Ondansetron Inj [Zofran Inj] Med 01/02/25 23:55 Active 4 mg IV Q4HR PRN Sodium Chloride 0.9% 1000 ml [Ns] 1,641 ml Med 01/03/25 00:46 Discontinued IV 1,641 mls/hr cefTRIAXone [Rocephin] 1,000 mg Med 01/03/25 00:46 Discontinued SODIUM CHLORIDE 0.9% (Popper) [Ns 0.9% (P)] 50 ml IV X1 Oxygen Delivery NOW RT 01/02/25 23:55 Active Oxygen Delivery NOW RT 01/03/25 00:47 Active Reevaluation(s) Reevaluation #1: Patient in no acute distress lying on the stretcher Time: 02:47 Vital Signs Vital signs: Vital Signs Temperature 98.3 F 01/02/25 22:45 Pulse Rate 79 01/02/25 22:45 Respiratory Rate 16 01/02/25 22:45 Blood Pressure 143/78 H 01/02/25 22:45 Pulse Oximetry (%) 96 01/02/25 22:45 Oxygen Delivery Method Room Air 01/02/25 22:45 Altered Mental Status MDM Narrative MDM Narrative:: Scribe Attestation: 01/03/2025 - Subha Barber am scribing for and in the presence of Dr. Mike. Provider Notation: Although this document has been carefully reviewed, there may still be some phonetic and other typographical errors.? These errors are purely grammatical due to imperfections in the software program and should not be construed in any way to compromise the substance of the patient's medical care during this visit. 49-year-old female with history of Migraine, Hypercholesterolemia, Hypertension, and Arthritis BIB presenting to the emergency department via private auto who is presenting for stated complaint of altered mental status x 4-5 hours. states patient took a pain pill for abdominal pain, but is unsure of what the medication is. ROS: Altered mental status. Differential diagnoses include stroke, drug use, metabolic encephalopathy 0600: Pending transfer. Patient signed out to Dr. Trevino. Patient data External records reviewed:: [facility] previous records (Reviewed prior ED records from 11/04/24. Patient was seen for Abdominal pain.) Clinical information provided by:: spouse (: Patient took a pain pill for abdominal pain, but is unsure of what the medication was.) Social determinants that could affect healthcare access:: none Patient has the following chronic illnesses:: Migraine, Hypercholesterolemia, Hypertension, Arthritis How is presenting disease/condition affected by chronic disease/condition?: exacerbated by Evaluation data The following diagnostics were reviewed and interpreted by me:: lab results and radiology exam(s) Lab and/or radiology exams considered but not ordered:: None Interpretation Summary: RADIOLOGY Abdomen/Pelvis CT: Pending official radiology report. Head/Neck CTA: Pending official radiology report. Head CT: Pending official radiology report. LABS_ RBC 3.6, Hgb 10.6, Hct 31.5%, Immature granulocyte # 0.03, Immature granulocyte % 1%. Potassium 3.2, Estimated Creatinine Clear Calc 57.6, eGFR 56, Glucose 153, AST 39. Urine color dark orange, Urine clarity Turbid, Urine Protein 2+, Urine blood 3+, urine Bilirubin 1+, Urine RBC 4660, Urine WBC 2135. Urine Opiates positive. Medications / Prescriptions Medications or Prescriptions considered but not ordered:: None Medication administrations:: Medication Administration History Naloxone HCl 2 mg/ Dextrose 500 mls @ 10 mls/hr IV .Q24H ONE Stop: 01/04/25 04:07 Last Admin: 01/03/25 04:24 Dose: 10 mls/hr Documented By: FENG Ondansetron HCl (Ondansetron Inj 2 Mg/Ml Inj 2 Ml) 4 mg IV Q4HR PRN PRN Reason: NAUSEA OR VOMITING Stop: 02/01/25 23:54 Discontinued Medications Aspirin (Aspirin 81 Mg Chew) 324 mg PO X1 ONE Stop: 01/03/25 02:41 Last Admin: 01/03/25 04:25 Dose: Not Given Documented By: FENG Non-Admin Reason: Cancelled by Provider Clopidogrel Bisulfate (Clopidogrel Bisulfate 75 Mg Tablet) 75 mg PO X1 ONE Stop: 01/03/25 02:41 Last Admin: 01/03/25 04:25 Dose: Not Given Documented By: FENG Non-Admin Reason: Cancelled by Provider Sodium Chloride (Ns) 1,641 mls @ 1,641 mls/hr 30 ml/kg infuse over 60 min (1641 ml) IV .Q1H ONE Stop: 01/03/25 01:45 Last Infusion: 01/03/25 02:35 Dose: Infused Documented By: Admin: 01/03/25 00:59 Dose: 1,641 mls/hr Documented By: PATY Ceftriaxone Sodium 1,000 mg/ (Sodium Chloride) 50 mls @ 100 mls/hr IV X1 ONE Stop: 01/03/25 01:15 Last Infusion: 01/03/25 01:49 Dose: Infused Documented By: Admin: 01/03/25 01:17 Dose: 100 mls/hr Documented By: FENG Meropenem 1,000 mg/ Sodium (Chloride) 50 mls @ 100 mls/hr IV X1 ONE Stop: 01/03/25 05:06 Last Admin: 01/03/25 05:34 Dose: 100 mls/hr Documented By: FENG Lorazepam (Lorazepam 2 Mg/Ml Vial) 2 mg IVP X1 ONE Stop: 01/03/25 00:39 Last Admin: 01/03/25 01:30 Dose: 2 mg Documented By: FENG Morphine Sulfate (Morphine Sulf Inj 10 Mg/Ml Vial) 4 mg IVP X1 ONE Stop: 01/03/25 00:47 Last Admin: 01/03/25 00:55 Dose: 4 mg Documented By: PATY Naloxone HCl (Naloxone Inj 1 Mg/Ml Syringe 2 Ml) 2 mg IV X1 ONE Stop: 01/03/25 00:29 Last Admin: 01/03/25 00:34 Dose: 2 mg Documented By: DAVID Naloxone HCl (Naloxone Inj 1 Mg/Ml Syringe 2 Ml) Confirm Administered Dose 2 mg .ROUTE .STK-MED ONE Stop: 01/03/25 00:27 Last Admin: 01/03/25 00:36 Dose: Not Given Documented By: DAVID Non-Admin Reason: Cancelled by Provider Naloxone HCl (Naloxone Inj 1 Mg/Ml Syringe 2 Ml) 2 mg IV X1 ONE Stop: 01/03/25 04:22 Last Admin: 01/03/25 04:28 Dose: 2 mg Documented By: FENG See above if any Consultations Consultation(s) initiated? (list below): Yes Consultation #1 (Physician, Specialty, Details): Dr. Leonora Landrum, our Teleneurologist, made aware of the patient?s HPI, PMHx, lab and/or radiology results. Discussed treatment plan. Time: 00:08 Consultation #2 (Physician, Specialty, Details): Dr. Stinson's resident made aware of the patient?s HPI, PMHx, lab and/or radiology results. Treatment plan was discussed. Time: 03:17 Consultation #3 (Physician, Specialty, Details): Dr. Stinson, our hospitalist, believes patient may have infected stints and advises transfer to [place]. Time: 04:49 Diagnosis Differential diagnosis altered mental status: altered mental status and other (stroke, drug use, metabolic encephalopathy) Most likely diagnosis given after review of the tests above:: Altered mental status Admission Indicated Admission indicated?: not indicated Explain why admission is indicated or not indicated:: Advised to transfer to [facility] due to infected stints. Admission Request Was there a request for admission?: Yes Admission Attestation Admission request attestation: Discussed case with [] from Hospitalist service regarding admission. Discussed patients ED course, exam findings, labs, and radiology results. The Hospitalist [agrees,declines] to accept the patient for admission. Disposition Plan Disposition Plan: Transfer Discharge Plan Plan Patient condition on transfer: Stable Prescriptions/Referrals Prescriptions/Med Rec: No Action naproxen [EC-Naproxen] 500 mg tablet,delayed release (DR/EC) 500 mg PO BID Low-Ogestrel (28) 0.3-30 mg-mcg tablet 1 tab PO QDAY tizanidine 6 mg capsule 6 mg PO BID PRN (Reason: Pain, Mild) metoprolol succinate 100 mg tablet extended release 24 hr 100 mg PO QDAY amlodipine 5 mg tablet 5 mg PO QDAY Referrals: No Primary/Family,Physician [Primary Care Provider] - In 1 week Problem List Clinical Impression: AMS (altered mental status) Patient/Caregiver Discharge Instructions Print Language: Tuvaluan
--- NOTE | 2025-01-03 00:17 | XR_ITS ---
Examination: CT abdomen and pelvis without contrast. Coronal 3-D reconstructions. Sagittal 2-D reconstructions. Date and time of exam:January 03, 2025 0019 hours beginning today Comparison November 04, 2024 INDICATIONS: Fever and abdominal pain back pain CTDI: vol (mGy): 13.8 DLP: (mGycm): 780 Technique: Axial images of the abdomen have been obtained, 3 mm slice thickness Intravenous contrast material has not been administered. Low dose protocols were performed. One or more of the following dose reduction techniques were used; automated exposure control, adjustment of the mA and/or KV according to patient size, use of iterative reconstruction technique. Findings: 15 mm hypodense lesion dome of the liver 18 mm hypodense lesion medial posterior right lobe of the liver and adjacent 4 mm lesion Small retrocardiac gastric hernia No splenic lesion Edematous appearing left kidney with wall thickening involving the pelvicalyceal system and ureter Left ureteral stent satisfactory position Normal appendix No bowel obstruction No pelvic mass Urinary bladder wall thickening IMPRESSION: Findings consistent with liver cysts Left pyelonephritis Cystitis pattern
--- NOTE | 2025-01-03 00:19 | PRELIM_ITS ---
CT scan of the head without intravenous contrast (axial sections with sagittal and coronal reformats). 11/04/24 January 03, 2025 0002 hours Clinical History: Focal neuro deficit, stroke suspected,General weakness, dizziness Comparison: 11/04/24 Findings: There is no intracranial hemorrhage, extra-axial collection, mass, mass-effect or midline shift. There is good baker-white differentiation. There is no CT evidence of acute large vascular territorial infarct. Ventricles are not enlarged or effaced. Visualized paranasal sinuses and tympanomastoid cavities are clear. The bony calvarium is intact. Impression: No intracranial hemorrhage, mass-effect or midline shift. No CT evidence of acute large vascular territorial infarct. Discussion Details: Results verbally communicated to : Dr. Stovall at 12:15 AM 01/03/2025 Report Electronically Signed By: Gallo Burns 01/03/2025 12:19:24 AM [EST]
[2025-01-03 00:21] LABS: Basophils % (Auto) 1 % (0-2.5); Eosinophils # (Auto) 0.1 Thou/mm3 (0.0-0.5); Eosinophils % (Auto) 1 % (0-10); Hematocrit 31.5 % (36.0-46.0); Hemoglobin 10.6 g/dL (12.0-16.0); Immature Granulocytes % (Auto) 1 % (0-0); Immature Granulocytes Auto 0.03 Thou/mm3 (0.00-0.00); Lymphocytes # (Auto) 1.4 Thou/mm3 (1.0-4.8); Lymphocytes % (Auto) 21 % (10-50); Mean Corpuscular HGB Conc 33.7 g/dl (31.0-37.0); Mean Corpuscular Hemoglobin 29.4 pg (25.0-35.0); Mean Corpuscular Volume 88 fL (80-100); Monocytes # (Auto) 0.4 Thou/mm3 (0.0-0.8); Monocytes % (Auto) 7 % (0-12); Neutrophils # (Auto) 4.7 Thou/mm3 (1.8-7.7); Neutrophils % (Auto) 71 % (37-80); Nucleated Red Blood Cell % 0 /100 WBC (0); Platelet Count 257 Thou/mm3 (140-440); RDW Standard Deviation 43.3 fL (36.4-46.3); White Blood Count 6.7 Thou/mm3 (3.6-11.0)
[2025-01-03 00:31] LABS: Bilirubin,Urine 1+ (Negative); Blood,Urine 3+ (Negative); Color,Urine Drk-Orange (Lt Yel-Yel); Glucose, Urine Negative (Negative); Ketones,Urine Negative (Negative); Leukocyte Esterase,Urine Positive (Negative); Nitrite,Urine Positive (Negative); Protein,Urine 2+ (Neg - Trace); RBC,Urine 4660 /hpf (0-3); Specific Gravity,Urine 1.021 (1.001-1.035); WBC,Urine 2135 /hpf (0-5)
[2025-01-03 00:32] LABS: Clarity,Urine Turbid (Clear/Hazy)
[2025-01-03] MEDS: NALOXONE INJ 1 MG/ML SYRINGE 2 ML 2 MG IV ×2 (00:34→04:28)
--- NOTE | 2025-01-03 00:35 | PC.NURSE ---
Dr. Lea from tele neuro called for consult.
[2025-01-03 00:44] LABS: Ammonia 17 uMol/L (11-32)
[2025-01-03 00:46] LABS: Amphetamine/Methamp Scrn,U Negative (Negative); Barbiturate Screen,Urine Negative (Negative); Benzodiazepines Screen,Urine Negative (Negative); Benzoylecgonine Screen, Ur Negative (Negative); Fentanyl Screen,Urine Negative (Negative); Opiate Screen,Urine Positive (Negative); THC Screen,Urine Negative (Negative)
[2025-01-03 00:47] LABS: Alanine Aminotransferase 29 U/L (10-49); Albumin, Serum 4.7 gm/dL (3.5-5.0); Albumin/Globulin Ratio 1.3 (1.2-2.2); Alcohol, Blood Medical < 3.0 mg/dL (0-10.0); Alkaline Phosphatase 86 U/L (46-116); Anion Gap 13 (7-16); Aspartate Amino Transferase 39 U/L (0-34); BUN/Creatinine Ratio 14 Ratio (12-20); Bilirubin,Total 0.4 mg/dL (0.3-1.2); Blood Urea Nitrogen 17 mg/dL (9-23); Calcium 9.4 mg/dL (8.3-10.6); Calcium (Corrected) 9.4 mg/dL (8.5-10.1); Carbon Dioxide 22.1 mMol/L (20.0-31.0); Chloride 107 mMol/L (98-107); Creatinine (Component) 1.2 mg/dL (0.6-1.3); Estimated Creatinine Clearance 57.6 mL/min (>60); Globulin 3.5 gm/dL (2.3-3.5); Glucose 153 mg/dL (74-106); Magnesium 2.4 mg/dL (1.6-2.6); Osmolality,Calculated 287 (275-295); Potassium 3.2 mMol/L (3.4-5.1); Sodium 142 mMol/L (136-145); Total Protein 8.2 gm/dL (5.7-8.2); Troponin I < 0.002 ng/mL (0.0-0.045); eGFR 56 See Note
[2025-01-03 00:51] LABS: INR 1.1 (0.9-1.3); Partial Thromboplastin Time 32.7 Seconds (22.0-36.0); Prothrombin Time 11.5 Seconds (9.0-12.2)
[2025-01-03] MEDS: MORPHINE SULF INJ 10 MG/ML VIAL 4 MG IVP (00:55)
[2025-01-03 00:57] LABS: HCG Titer if Positive Negative
[2025-01-03] MEDS: SODIUM CHLORIDE 0.9% 1000 ML 1,641 ML 1641 ML IV (00:59)
--- NOTE | 2025-01-03 00:59 | PC.NURSE ---
Patients wants to wait on lumbar puncture at this time per Dr. Stovall.
[2025-01-03] MEDS: cefTRIAXone 1,000 MG in SODIUM CHLORIDE 0.9% (Popper) 50 ML 100 MG IV (01:17)
[2025-01-03 01:20] LABS: Lactate (Lactic Acid) 1.3 mMol/L (0.4-2.0)
--- NOTE | 2025-01-03 01:22 | PRELIM_ITS ---
CT scan of the abdomen and pelvis without intravenous contrast (axial sections with sagittal and coronal reformats). January 03, 2025 at 0019 hours Clinical History: Abdominal pain, history kidney stone. Comparison: No prior study is available for comparison. Findings: Image quality is limited by motion related artifact. The lung bases are clear. The gallbladder, pancreas, spleen and adrenals are unremarkable on this noncontrast study. Hepatomegaly. Hypodense lesion of the liver dome measures 2.3 cm. A few other smaller hypodense liver lesions are also noted. Bilateral JJ catheters from bilateral renal pelvis through the urinary bladder. Mild left hydroureteronephrosis. Thickening of the left ureter wall. Heterogenous enhancement of the left kidney. Excreted contrast noted in bilateral collecting systems. No evidence of bowel obstruction. The appendix is within normal limits. There is no mesenteric or retroperitoneal adenopathy. The urinary bladder is unremarkable. There is no free fluid or free air. The osseous structures are unremarkable. The uterus and ovaries are within normal limits. Impression: 1. Probable left ureteritis. 2. Mild left hydroureteronephrosis. 3. Hepatomegaly. 4. Indeterminate hypodense lesion at the liver dome, correlation with MRI for characterization is recommended. 5. Possible left pyelonephritis. Report Electronically Signed By: Jamarcus Paulson 01/03/2025 1:21:56 AM [EST]
--- NOTE | 2025-01-03 01:24 | PRELIM_ITS ---
CT angiogram of the head and neck with intravenous contrast (axial sections with sagittal and coronal reformats). January 03, 2025 0011 hours Clinical History: Focal neuro deficit, stroke suspected Comparison: No prior CT angiogram of the neck/head available for review. Correlation made with prior CT head from 01/03/25. Findings: There is a classic three-vessel aortic arch configuration. The cervical carotid circulation is widely patent without flow-limiting stenosis, 0% stenosis per NASCET criteria. The cervical vertebral arteries are codominant. There is severe flow-limiting stenosis at the origin/proximal most aspect of the cervical right vertebral artery. Otherwise cervical vertebral arteries are intact without flow-limiting stenosis. There is no aneurysm or dissection of the cervical carotid or cervical vertebral circulation. The intracranial vertebral arteries are intact without flow-limiting stenosis. The basilar artery is intact without flow-limiting stenosis. The posterior cerebral arteries are intact without flow-limiting stenosis. The internal carotid arteries are intact without flow-limiting stenosis. The anterior and middle cerebral arteries are intact without flow-limiting stenosis. There is no intracranial aneurysm or AVM. Impression: 1. Severe flow-limiting stenosis at the origin of/proximal most aspect of the cervical right vertebral artery. Otherwise no flow-limiting stenosis, aneurysm or dissection of the cervical carotid or cervical vertebral circulation. 2. No intracranial major proximal vessel occlusion, flow-limiting stenosis, aneurysm or AVM. Report Electronically Signed By: Gallo Burns 01/03/2025 1:24:08 AM [EST]
[2025-01-03] MEDS: LORazepam 2 MG/ML VIAL IVP (01:30)
[2025-01-03 01:31] LABS: B-Type Natriuretic Peptide 28 pg/mL (0-100)
--- NOTE | 2025-01-03 01:32 | PD.TNEURO ---
Tele Neuro Consultation Consultation Date 01/03/25 Most Recent Vital Signs Last Vital Signs Temp 98.3 F 01/02/25 22:45 Pulse 69 01/03/25 00:51 Resp 14 01/03/25 00:51 BP 152/94 H 01/03/25 00:33 Pulse Ox 100 01/03/25 00:51 O2 Del Method Room Air 01/03/25 00:33 Laboratory-Coagulation Panel PT 11.5 Seconds (9.0-12.2) 01/03/25 00:08 INR 1.1 (0.9-1.3) 01/03/25 00:08 APTT 32.7 Seconds (22.0-36.0) 01/03/25 00:08 Consultation Narrative [facility] TeleNeurology Consult Services Patient Name:???Janeth Petersen Date of :???1975 Identification Number:??? Date of Service:???01/02/2025 23:58:19 Diagnosis:?G93.41 - Encephalopathy Metabolic ?G93.49 - Encephalopathy Multifactorial Impression: ?Janeth Petersen is a 49-year-old female with a history of hypertension presenting with acute altered mental status for approximately 6 hours. The patient's sudden onset of unresponsiveness and staring episodes, with a baseline GCS of 15, raises concern for an acute neurological event. Given the abrupt change in mental status, a stroke was initially considered, prompting a CT head and CT angiogram to evaluate for ischemic or hemorrhagic events, particularly in the posterior circulation. The CT head was reported as negative, ruling out acute intracranial hemorrhage. Encephalopathy was also considered due to the patient's presentation. The possibility of drug-induced altered mental status was explored, given the patient's reported use of unspecified pain medication, leading to the administration of Narcan as a diagnostic and therapeutic measure. An EEG was requested to evaluate for non-convulsive status epilepticus or other epileptiform activity that could explain the patient's altered mental status. The differential diagnosis includes toxic encephalopathy, stroke (particularly posterior circulation), and non-convulsive status epilepticus. Our recommendations are outlined below. Recommendations: ? Stroke/Telemetry Floor ? Neuro Checks (Q2) ? Bedside Swallow Eval ? DVT Prophylaxis ? IV Fluids, Normal Saline ? Head of Bed 30 Degrees ? Euglycemia and Avoid Hyperthermia (PRN Acetaminophen) ? Initiate or continue Aspirin 81 MG daily Sign Out: ? Discussed with Emergency Department Provider Advanced Imaging:Advanced imaging has been ordered. Results pending. Metrics: Last Known Well: Unknown Dispatch Time: 01/02/2025 23:58:19 Arrival Time: 01/02/2025 21:31:00 Initial Response Time: 01/03/2025 00:06:26Symptoms: AMS. Initial patient interaction: 01/03/2025 00:25:26 NIHSS Assessment Completed: 01/03/2025 00:33:33Patient is not a candidate for Thrombolytic. Thrombolytic Medical Decision: 01/03/2025 00:33:33Patient was not deemed candidate for Thrombolytic because of following reasons: LKW outside 4.[address] Head: I personally reviewed all the CT images that were available to me and it showed: no acute events Primary Provider Notified of Diagnostic Impression and Management Plan on: 01/03/2025 00:38:49 History of Present Illness:Patient is a 49 year old Female. Patient was brought by private transportation with symptoms of AMS. Janeth Petersen, a 49-year-old female with a history of hypertension, presented to the emergency department with altered mental status. The patient's family reported that she was fine until approximately 6-8 hours prior to arrival when they noticed a change in her behavior. According to the family, Ms. Petersen was completely normal 4-5 hours before presentation, even driving to [place]. The onset of symptoms was sudden, with the family first noticing that she was staring while in bed. The patient's condition progressed to the point where she became unarousable, prompting the family to bring her to the hospital. This is reported to be the first time Ms. Petersen has experienced such an episode. The patient's baseline condition was described as GCS 15, indicating normal consciousness and responsiveness. Her medical history includes hypertension, for which she takes medication. The family also mentioned that she takes some pain pills though they were unsure of the specific type. There is no reported family history of seizure or stroke. ? Past Medical History: ?Hypertension unable to obtain due to:?? Patient Is Confused Medications: Anticoagulant use:??Unknown Antiplatelet use:?Unknown Reviewed EMR for current medications Allergies:? Allergies Unable To Obtain Due To:?Patient Is Confused Social History: Unable To Obtain Due To Patient Status :?Patient Is Confused Family History: Family History Cannot Be Obtained Because:Patient Is Confused ROS :?ROS Cannot Be Obtained Because:? Patient Is Confused Past Surgical History: Past Surgical History Cannot Be Obtained Because: Patient Is Confused There Is No Surgical History Contributory To Today?s Visit NIHSS may not be reliable due to: Confused Examination: BP(143/78),?Pulse(79),?Blood Glucose(124) 1A: Level of Consciousness - Requires repeated stimulation to arouse?+ 2 1B: Ask Month and Age - Aphasic?+ 2 1C: Blink Eyes & Squeeze Hands - Performs 0 Tasks?+ 2 2: Test Horizontal Extraocular Movements - Normal?+ 0 3: Test Visual Donaldson - No Visual Loss?+ 0 4: Test Facial Palsy (Use Grimace if Obtunded) - Normal symmetry?+ 0 5A: Test Left Arm Motor Drift - Drift, hits bed?+ 2 5B: Test Right Arm Motor Drift - Drift, hits bed?+ 2 6A: Test Left Leg Motor Drift - Drift, hits bed?+ 2 6B: Test Right Leg Motor Drift - Drift, hits bed?+ 2 7: Test Limb Ataxia (FNF/Heel-Combs) - Does Not Understand?+ 0 8: Test Sensation - Normal; No sensory loss?+ 0 9: Test Language/Aphasia - Coma/Unresponsive?+ 3 10: Test Dysarthria - Mute/Anarthric?+ 2 11: Test Extinction/Inattention - No abnormality?+ 0 NIHSS Score:?19 Pre-Morbid Modified [place] Scale:Unable to assess Spoke with :?DR. ORTIZ This consult was conducted in real time using interactive audio and video technology. Patient was informed of the technology being used for this visit and agreed to proceed. Patient located in hospital and provider located at home/office setting. Patient is being evaluated for possible acute neurologic impairment and high probability of imminent or life-threatening deterioration. I spent total of 35 minutes providing care to this patient, including time for face to face visit via telemedicine, review of medical records, imaging studies and discussion of findings with providers, the patient and/or family. Dr Leonora Landrum [facility] For Inpatient follow-up with [facility] physician please call [facility] at . As we are not an outpatient service for any post hospital discharge needs please contact the hospital for assistance. If you have any questions for the [facility] physicians or need to reconsult for clinical or diagnostic changes please contact us via [facility] at .
[2025-01-03 01:33] LABS: LDH (Lactate Dehydrogenase) 188 U/L (120-246); Lipase 49 U/L (12-53); Phosphorous 3.6 mg/dL (2.4-5.1); Procalcitonin 0.27 ng/ml (0.0-0.49)
[2025-01-03] MEDS: NALOXONE INJ (Syringe) 2 MG in DEXTROSE 5%-WATER 498 ML 10 MG IV (04:24)
[2025-01-03 04:39] LABS: Base Excess -2 (-3-3); HCO3 22 mEq/L (20-26); Inspired Oxygen, FIO2 21 %; O2 Saturation 99 % (91-98); PCO2 33 mmHg (32.0-48.0); PO2 116 mmHg (83-108); pH, Arterial 7.43 (7.35-7.45)
[2025-01-03 04:44] LABS: Allen Test Performed/OK; Puncture Site Left Brachial
[2025-01-03 05:34] LABS: Base Excess, Venous -2 (-3-3); O2 Saturation, Venous 74 % (96-97); PCO2, Venous 30 mmHg (36-56); PO2, Venous 37 mmHg (15-58); pH, Venous 7.46 (7.33-7.66)
[2025-01-03] MEDS: MEROPENEM INJ 1,000 MG in SODIUM CHLORIDE 0.9% (Popper) 50 ML 100 MG IV (05:34)
[2025-01-03 06:18] LABS: Acetaminophen < 2.0 mcg/mL (10.0-20.0)
--- NOTE | 2025-01-03 06:53 | PD.RESCONSUL ---
[facility] Data of Consult Consult date: 01/03/25 Primary Care Provider: Physician No Primary/Family Consult Narrative Reason for consult: Encephalitis versus infected ureteral stents History of present illness: Ms. Petersen is a 49-year-old female with past medical history of neck impingement and hypertension along with back spasms who came to [facility] brought in by her with a chief complaint of fevers with hematuria. He states that the patient for the last week has been having fevers every night and has been experiencing significant dysuria and hematuria. He states that 2 months ago she had stents placed at [facility] and that they kept the stents in due to the fact that there was a kidney stone. UA for the patient appeared to be dark orange in color and turbid with 2+ protein 3+ blood 1+ bilirubin over 4000 RBCs and 2000 WBCs. Upon clinical examination patient appeared to be obtunded with a GCS of 5-6. She was given Narcan initially due to having positive opioid on urine drug screen and later was initiated on a Narcan drip with concern for opioid overdose. Patient later became awake and was extremely agitated trying to climb out of bed and requiring her and nursing staff to place her back into bed. During the entire episode she was not answering questions appropriately and we explained to the that the patient appears extremely sick in comparison to her lab values. We asked emergency department for urological consultation with [facility] urology in case patient's ureteral stents may be infected and that they would like to address those given patient's hematuria and dysuria. Also concern for encephalitis given the fact that patient's mentation goes from obtunded requiring sternal rub to extreme agitation. She was complaining with inability to pee even though Sharma catheter was in place. Please reach out to floor team's for admission in the event that urology states that patient is okay from a urological standpoint. Given the fact that procalcitonin is negative patient has remained afebrile and WBC count is within normal limits higher degree of suspicion for encephalitis at this point. Initially a stroke alert was called for the patient due to the fact that her mentation was poor. Telemetry neuro scored NIHSS at 19 and stated patient was not a candidate for tPA. 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 More suspicion for a metabolic encephalopathy versus a infectious etiology. Please reach out to floor team's for further evaluation if admission is warranted here at [facility] Plan of care discussed with supervising attending Dr. Stinson cc:: cc: Exam Vital Signs Temp Pulse Resp BP Pulse Ox O2 Del Method 97.9 F 92 20 140/77 H 98 Room Air 01/03/25 05:36 01/03/25 05:36 01/03/25 05:36 01/03/25 05:36 01/03/25 05:36 01/03/25 05:36 Narrative Exam GENERAL: Waxing and waning mentation. GCS ranges from 5-6 to 10-11 when agitated. EYES: EOMI. Anicteric. HEENT: Moist mucous membranes. No scleral icterus. No cervical lymphadenopathy. LUNGS: Clear to auscultation bilaterally. No accessory muscle use. CARDIOVASCULAR: Regular rate and rhythm. No murmur. No JVD. ABDOMEN: Soft, non-tender and non-distended. No palpable masses. Sharma's catheter in place with reddish colored urine. Significant urine output. EXTREMITIES: All 4 extremeties intact. No edema. Nontender. SKIN: No rashes or lesions. Warm. NEUROLOGIC: No focal neurological deficits. CN II-XII grossly intact, but not individually tested. PSYCHIATRIC: Altered and unable to answer questions appropriately. Results Labs 01/02/25 23:55 01/03/25 00:08 Labs: Short CBC 01/02/25 Range/Units 23:55 WBC 6.7 (3.6-11.0) Thou/mm3 Hgb 10.6 L (12.0-16.0) g/dL Hct 31.5 L (36.0-46.0) % Plt Count 257 (140-440) Thou/mm3 BMP 01/03/25 00:08 Sodium 142 Potassium 3.2 L Chloride 107 Carbon Dioxide 22.1 BUN 17 Creatinine 1.2 Glucose 153 H Calcium 9.4 Cardiac Enzymes 01/03/25 Range/Units 00:08 Troponin I < 0.002 (0.0-0.045) ng/mL Liver Function 01/03/25 Range/Units 00:08 Total Bilirubin 0.4 (0.3-1.2) mg/dL AST 39 H (0-34) U/L ALT 29 (10-49) U/L Alkaline Phosphatase 86 (46-116) U/L Albumin 4.7 (3.5-5.0) gm/dL Urine 01/02/25 Range/Units 23:59 Urine Color Drk-[place] A (Lt Yel-Yel) Urine Clarity Turbid A (Clear/Hazy) Urine pH 6.0 (5.0-7.0) Ur Specific Gorin 1.021 (1.001-1.035) Urine Protein 2+ A (Neg - Trace) Urine Glucose (UA) Negative (Negative) ABG Interpretation ABG results: 01/03/25 01/03/25 04:27 05:30 ABG pH 7.43 ABG pCO2 33 ABG pO2 116 H ABG HCO3 22 ABG O2 Saturation 99 H ABG Base Excess -2 VBG pH 7.46 VBG pCO2 30 L VBG pO2 37 VBG Base Excess -2 Quality Measures Quality Measures stroke Suspected type of Stroke: Unknown at this time Tenecteplase given: Reason(s) Tenecteplase not given: Outside the time window not given Rehab services: PT evaluation ordered and Speech Language Pathology eval ordered VTE Prophylaxis: not ordered Antithrombotic by day 2:: contraindicated (describe) and not indicated (describe) Statin ordered: not ordered Anticoagulation ordered for A-fib or flutter (current or hx): not indicated Medications Home Medications and Allergies Home Medications ?Medication ?Instructions ?Recorded ?Confirmed ?Type amlodipine 5 mg tablet 5 mg PO QDAY 02/02/24 05/07/24 History metoprolol succinate 100 mg 100 mg PO QDAY 02/02/24 05/07/24 History tablet,extended release 24 hr naproxen 500 mg tablet,delayed 500 mg PO BID 02/02/24 05/07/24 History release (EC-Naproxen) norgestrel 0.3 mg-ethinyl 1 tab PO QDAY 02/02/24 05/07/24 History estradiol 30 mcg tablet (Low-Ogestrel (28)) tizanidine 6 mg capsule 6 mg PO BID PRN Pain, Mild 02/02/24 05/07/24 History Held on 05/01/24. Instructions: Resume on 05/02/24. Allergies Allergy/AdvReac Type Severity Reaction Status Date / Time No Known Allergies Allergy Verified 01/02/25 21:33 Visit Medications Naloxone HCl 2 mg/ Dextrose 500 mls @ 10 mls/hr IV .Q24H ONE Stop: 01/04/25 04:07 Last Admin: 01/03/25 04:24 Dose: 10 mls/hr Ondansetron HCl (Ondansetron Inj 2 Mg/Ml Inj 2 Ml) 4 mg IV Q4HR PRN PRN Reason: NAUSEA OR VOMITING Stop: 02/01/25 23:54 Discontinued Medications Aspirin (Aspirin 81 Mg Chew) 324 mg PO X1 ONE Stop: 01/03/25 02:41 Last Admin: 01/03/25 04:25 Dose: Not Given Clopidogrel Bisulfate (Clopidogrel Bisulfate 75 Mg Tablet) 75 mg PO X1 ONE Stop: 01/03/25 02:41 Last Admin: 01/03/25 04:25 Dose: Not Given Sodium Chloride (Ns) 1,641 mls @ 1,641 mls/hr 30 ml/kg infuse over 60 min (1641 ml) IV .Q1H ONE Stop: 01/03/25 01:45 Last Infusion: 01/03/25 02:35 Dose: Infused Ceftriaxone Sodium 1,000 mg/ (Sodium Chloride) 50 mls @ 100 mls/hr IV X1 ONE Stop: 01/03/25 01:15 Last Infusion: 01/03/25 01:49 Dose: Infused Meropenem 1,000 mg/ Sodium (Chloride) 50 mls @ 100 mls/hr IV X1 ONE Stop: 01/03/25 05:06 Last Infusion: 01/03/25 06:14 Dose: Infused Lorazepam (Lorazepam 2 Mg/Ml Vial) 2 mg IVP X1 ONE Stop: 01/03/25 00:39 Last Admin: 01/03/25 01:30 Dose: 2 mg Morphine Sulfate (Morphine Sulf Inj 10 Mg/Ml Vial) 4 mg IVP X1 ONE Stop: 01/03/25 00:47 Last Admin: 01/03/25 00:55 Dose: 4 mg Naloxone HCl (Naloxone Inj 1 Mg/Ml Syringe 2 Ml) 2 mg IV X1 ONE Stop: 01/03/25 00:29 Last Admin: 01/03/25 00:34 Dose: 2 mg Naloxone HCl (Naloxone Inj 1 Mg/Ml Syringe 2 Ml) 2 mg IV X1 ONE Stop: 01/03/25 04:22 Last Admin: 01/03/25 04:28 Dose: 2 mg Assessment & Plan Plan ICU was consulted due to the fact the patient was placed on a Narcan drip. Low degree of suspicion for opioid overdose given the fact that patient does not use street opioids and did not have suicidal tendencies. Suggested to the to bring the painkillers to the hospital to be assessed if patient has taken more than prescribed dosing. Higher degree of suspicion for encephalitis versus infected ureteral stents.
--- NOTE | 2025-01-03 07:22 | PD.EDADDENDU ---
Emergency Room Addendum Addendum Narrative: 0600: Care assumed from Dr. Stovall, the previous shift emergency physician. Past medical, surgical, social and family history reviewed. Vitals and home medications reviewed. I will assume the care of the patient at this time, pending transfer for urology services. Please refer to the emergency department record for history and examination from initial visit.?The following addendum documentation note is intended to reflect any pending information, findings, or radiology results not included in the patient?s initial chart. Nursing notes reviewed by me. Vital signs reviewed by me. [place] medical records reviewed by me. 0726: I spoke with transfer nurse at [facility]. Discussed patients PMHx, HPI, ED course, exam findings, labs, and radiology results. Will consult with their urologist team. 0850: I spoke with [facility] transfer nurse. Discussed patients PMHx, HPI, ED course, exam findings, labs, and radiology results. Reports they have urology available at both [facility] and [facility]. 1120: I spoke with urologist at [facility]. Discussed patient?s HPI, PMHx, lab and radiology results. Urologist declines transfer. 1130: I spoke with urologist Dr. Niko Garcia at [facility]. States he reviewed patients labs and images. States the patient can be managed with IV antibiotics and does not require transfer or stent replacement. States he will follow up with the patient after discharge. Requesting a disc with all images. [address] [facility] [address] [place], [place] [address]: I spoke with resident working with Dr. Landin regarding admission. Discussed patients PMHx, HPI, ED course, exam findings, labs, and radiology results. The hospitalist agree to accept the patient for admission.
--- NOTE | 2025-01-03 07:31 | PC.CC ---
Addendum entered by Kendall Lechuga RN 01/03/25 11:41: 1138: Called Ledy back at [facility] and informed her to cancel transfer request per Dr. Trevino. 1128: Latonia w/ [facility], requested to speak to Dr Trevino and call initiated. Latonia provided Urologist Dr. Niko Garcia's recommendations to follow up as outpatient. Per Dr. Trevino cancel transfer at this time. He will reach out the hospitalist to review for admission. 1125: Ledy w/ [facility], requested peer to peer, call initiated. Chris declined and Urologist Ridge Fink informed Dr. Trevino to follow up with [facility] since the stents were placed at that facility. B[place]y will continue with transfer search and reach out to [facility]. Addendum entered by Kendall Lechuga RN 01/03/25 10:26: 0941: Rosie at [facility] confirmed receipt of clinicals and images, will continue the review process. Addendum entered by Kendall Lechuga RN 01/03/25 09:23: 0920: received call from Latonia at [facility], requesting clarification of Gildardo rodney. Gildardo rodney has been d/c'd. She stated she is waiting for Urology to review the case and will call back with an update. Addendum entered by Kendall Lechuga RN 01/03/25 09:01: spoke to Leyd at [facility], clinical and images sent. Addendum entered by Kendall Lechuga RN 01/03/25 08:53: spoke to Brook at [facility], she requested to speak to Dr. Trevino, conference call initiated. Addendum entered by Kendall Lechuga RN 01/03/25 08:28: spoke to Latonia at [facility], confirmed she received the images and clinicals and will escalate to leadership team. She will call back with update. Original Note: Spoke to Latonia at [facility] to request stat transfer, clinical documents with imaging sent. Latonia and Dr. Trevino discussed case via conference call. Per Latonia, will review case once documents and imaging received.
--- NOTE | 2025-01-03 12:36 | ECHO_ITS ---
Transthoracic Echo Report Ht (in): 64 Wt (lb): 170 Exam Location: Echo Lab Status: Inpatient Radio Director: Beronica Gallegos Indications: Procedure Performed: BP: 148 / 81 HR: 104 Technical Quality: Technically difficult study MEASUREMENTS (Male / Female) Normal Values 2D ECHO LV Diastolic Diameter PLAX 4.5 cm 4.2 - 5.9 / 3.9 - 5.3 cm LV Systolic Diameter PLAX 2.9 cm IVS Diastolic Thickness 1.0 cm 0.6 - 1.0 / 0.6 - 0.9 cm LVPW Diastolic Thickness 0.9 cm 0.6 - 1.0 / 0.6 - 0.9 cm LV Relative Wall Thickness 0.4 LVOT Diameter 1.6 cm M-MODE Aortic Root Diameter MM 2.9 cm LA Systolic Diameter MM 3.0 cm LA Ao Ratio MM 1.0 AV Cusp Separation MM 1.3 cm DOPPLER AV Peak Velocity 169.5 cm/s AV Peak Gradient 11.5 mmHg AV Mean Gradient 6.5 mmHg AV Velocity Time Integral 30.2 cm LVOT Peak Velocity 137.0 cm/s LVOT Peak Gradient 7.5 mmHg LVOT Velocity Time Integral 23.1 cm LVOT Cardiac Index 2556.6 cm?/min?m? AV Area Cont Eq vti 1.5 cm? AV Area Cont Eq pk 1.6 cm? MV Area PHT 4.4 cm? Mitral E Point Velocity 59.2 cm/s Mitral A Point Velocity 96.0 cm/s Mitral E to A Ratio 0.6 LV E' Lateral Velocity 11.1 cm/s Mitral E to LV E' Lateral Ratio 5.3 LV E' Septal Velocity 10.1 cm/s Mitral E to LV E' Septal Ratio 5.9 FINDINGS Left Ventricle Normal left ventricular size and wall thickness. Hyperdynamic LV. The ejection fraction is visually estimated at 75 %. Right Ventricle The right ventricle is normal in size and systolic function. Left Atrium The left atrium is normal by two-dimensional, color flow and Doppler imaging with no structural abnormalities, no thrombus formation present. Right Atrium The right atrium is normal by two-dimensional imaging, color flow and Doppler imaging with no structural abnormalities, no thrombus formation present. Atrial Septum The interatrial septum appears normal with no evidence of a shunt. Aorta The aorta is normal by two-dimensional, color flow and Doppler interrogation. Mitral Valve The mitral valve is normal by two-dimensional, color flow and Doppler interrogation. There is no significant mitral valve regurgitation, stenosis or prolapse. Aortic Valve The aortic valve is trileaflet and normal by two-dimensional, color flow and Doppler interrogation. There is no significant aortic valve regurgitation. Tricuspid Valve The tricuspid valve is normal by two-dimensional, color flow and Doppler interrogation. There is no significant tricuspid valve regurgitation. Pulmonic Valve The pulmonic valve is not well visualized. There is no significant pulmonic valve regurgitation. Vessels Inferior vena cava not well visualized. Pericardium The pericardium is normal by two-dimensional imaging. There is no significant pericardial effusion. CONCLUSIONS Indication: stroke suboptimal bubble study images Hyperdynamic LV systolic function. LV ejection fraction is visually estimated at 70%. RV is normal in size and systolic function. No significant valvular abnormalites. Giselle German (Electronically Signed) Final Date: 08 Jan 2025 21:19
[2025-01-03] MEDS: SODIUM CHLORIDE 0.9% 1000 ML 1,000 ML 75 ML IV (13:22)
[2025-01-03] MEDS: PIPER/TAZO INJ 4.5 GM in SODIUM CHLORIDE 0.9% (POP) 100 ML IV (13:23)
[2025-01-03] MEDS: HEPARIN SOD INJ 5000 UNIT/ML VIAL SC ×2 (13:24→21:45)
[2025-01-03] MEDS: POTASSIUM CHL 10 mEq IVPB 10 MEQ/100 ML BAG 100 MEQ IV ×2 (13:24→20:46)
[2025-01-03 13:44] LABS: Glucose Estimated Average 105 mg/dL (80-131); Hemoglobin A1C 5.3 % Hgb (4.8-6.0)
[2025-01-03 13:48] LABS: Sed Rate (ESR) 104 mm/hr (0-20)
[2025-01-03] MEDS: Vancomycin Inj 1,500 MG in SODIUM CHLORIDE 0.9% 500 ML 500 ML 198 MG IV (13:57)
[2025-01-03 14:14] LABS: Creatine Kinase 42 U/L (34-171); Thyroid Stimulating Hormone 1.41 uIU/mL (0.55-4.78)
[2025-01-03 14:21] LABS: Folate 12.62 ng/mL (>5.38); Vitamin B12 885 pg/mL (211-911)
[2025-01-03 14:27] LABS: C-Reactive Protein 7.4 mg/dL (0.0-0.9); Cardiac Risk Estimate 6.2 RATIO (3.7-5.6); Cholesterol 181 mg/dL (132-200); HDL Cholesterol 29 mg/dL (40-60); LDL Cholesterol,Calculated 126 mg/dL (0-130); Triglycerides 128 mg/dL (30-150)
--- NOTE | 2025-01-03 14:27 | RESP.EEG ---
EEG to be done once patient is up on the floors per MD.
[2025-01-03] MEDS: POTASSIUM CHL 10 mEq IVPB 10 MEQ/100 ML BAG 75 MEQ IV ×2 (14:32→16:00)
--- NOTE | 2025-01-03 14:36 | PD.RESHP ---
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 Patient was recently transferred from our ER around 2 months ago due to kidney stones which required stent placement. ICU was initially consulted for possible admission, but they requested that the patient have a urology consult for possible transfer prior to admitting the patient. This morning ED physician spoke with urologist at [facility] and discussed patient's case as well as urologist at [facility] who stated that patient can be managed with IV antibiotics and did not require transfer or new stent placement at this time. On my assessment patient was still confused when though she was able to follow commands, but was having trouble answering multiple questions and getting more detail history. Patient was repeating the same thing multiple times and her mentation was still not at baseline. Spoke with patient's sister and patient's son at bedside about what events happened. Patient's son stated that he was at home when he saw her laying in bed like she was sleeping, but that she was not waking up as she normally does. He stated that she was also somewhat confused and cannot pronounce words correctly. He denies patient having any shaking or excessive blinking. He then mentioned that for the past months patient has been having on and off fevers with some abdominal pain, but no episodes of forgetfulness, confusion, slurred speech, or seizure-like activity prior to this admission. ED course: Initially patient came in hypertensive and afebrile. Initial labs were relevant for low hemoglobin (10.6), elevated ESR (104), ABG was unremarkable, hypokalemia (3.2), elevated CRP (7.4), and UA was positive for leukocytes esterase, nitrates, RBCs and WBCs. In the ED patient received Narcan as well as meropenem. Stroke alert was called also in the ED and teleneurology saw the patient. PMH: As above Surgical Hx: Ureteral stent placement Social Hx: Denies any smoking, drugs, or alcohol Review of Systems Review of Systems Narrative Review of Systems: Constitutional: Denies sweats, Denies weight loss/gain, Admits fever, Denies chills. HEENT: Denies hearing loss, Denies ear pain, Denies postnasal drip, Denies double vision, Denies blurry vision. Respiratory: Denies shortness of breath, Denies cough, Denies wheezing. Cardiovascular: Denies chest pain, Denies palpitations, Denies sudden loss of consciousness. GI: Denies blood in stool, Denies constipation, Admits abdominal pain, Denies difficulty swallowing, Denies nausea or vomit. : Denies urinary incontinence, Admits pain while urinating, Denies increased urinary frequency. MSK: Denies joint pain, Denies joint swelling, Denies numbness. Skin: Denies rash, Denies itching, Denies easy bruising. Neuro: Denies headaches, Denies dizziness, Denies seizures. Past Medical History Past Medical History NEUROLOGIC: Positive Neurological Disorders and Migraine CARDIAC: Positive Cardiac Disorders, Hypercholesterolemia and Hypertension REPRODUCTIVE: Positive Previous Pregnancies MUSCULOSKELETAL: Positive Musculoskeletal Disorders and Arthritis OTHER HISTORY: Positive Chicken Pox Surgical History SURGICAL: Positive Oral Surgery (wisdom x4 extraction) Social History SMOKING STATUS: Never smoker SUBSTANCE USE: does not use Exam Vital Signs Temp Pulse Resp BP Pulse Ox O2 Del Method 98.5 F 90 14 135/72 H 100 Room Air 01/03/25 14:00 01/03/25 14:00 01/03/25 14:00 01/03/25 14:00 01/03/25 14:00 01/03/25 14:00 Narrative Exam General: A/O x3, somnolent Eyes: PERRL, EOMI. Anicteric, vision grossly intact. Ears: No ear pain, no ear discharge, Hearing grossly intact. Nose: No nasal discharge. Mouth/Throat: Moist mucous membranes, no redness, lesion in tip of tongue possibly tongue biting. Neck: Neck supple, non-tender, no cervical lymphadenopathy. Lungs: Clear RADHA to auscultation and percussion, No accessory muscle use. Cardio: Normal S1/S2, regular rhythm, no murmurs, no JVD Abdomen: Soft, non-tender, no palpable masses, peristalsis present, no guarding or rebound. Extremities: Symmetrical, no significant deformities, no peripheral edema , non-tender, peripheral pulses presents. Skin: No rashes, no lesions, warm to touch. Neuro: No focal neurological deficits. Patient was able to move all extremities, but strength was 4/5 RADHA LE and UE. Patient's somnolence made neurological exam very limited, but no gross focal neurological deficits appreciated Results: Labs 01/02/25 23:55 01/03/25 00:08 Labs: Short CBC 01/02/25 Range/Units 23:55 WBC 6.7 (3.6-11.0) Thou/mm3 Hgb 10.6 L (12.0-16.0) g/dL Hct 31.5 L (36.0-46.0) % Plt Count 257 (140-440) Thou/mm3 BMP 01/03/25 00:08 Sodium 142 Potassium 3.2 L Chloride 107 Carbon Dioxide 22.1 BUN 17 Creatinine 1.2 Glucose 153 H Calcium 9.4 Cardiac Enzymes 01/03/25 01/03/25 Range/Units 00:08 13:17 Total Creatine Kinase 42 (34-171) U/L Troponin I < 0.002 (0.0-0.045) ng/mL Liver Function 01/03/25 Range/Units 00:08 Total Bilirubin 0.4 (0.3-1.2) mg/dL AST 39 H (0-34) U/L ALT 29 (10-49) U/L Alkaline Phosphatase 86 (46-116) U/L Albumin 4.7 (3.5-5.0) gm/dL Urine 01/02/25 Range/Units 23:59 Urine Color Drk-[place] A (Lt Yel-Yel) Urine Clarity Turbid A (Clear/Hazy) Urine pH 6.0 (5.0-7.0) Ur Specific [place] 1.021 (1.001-1.035) Urine Protein 2+ A (Neg - Trace) Urine Glucose (UA) Negative (Negative) ABG Interpretation ABG results: 01/03/25 01/03/25 04:27 05:30 ABG pH 7.43 ABG pCO2 33 ABG pO2 116 H ABG HCO3 22 ABG O2 Saturation 99 H ABG Base Excess -2 VBG pH 7.46 VBG pCO2 30 L VBG pO2 37 VBG Base Excess -2 Quality Measures Quality Measures stroke Suspected type of Stroke: Unknown at this time Tenecteplase given: Reason(s) Tenecteplase not given: Outside the time window not given Rehab services: PT evaluation ordered and Speech Language Pathology eval ordered VTE Prophylaxis: pharmaceutical Antithrombotic by day 2:: not indicated (describe) Statin ordered: <75 y/o high intensity dose Anticoagulation ordered for A-fib or flutter (current or hx): not indicated Medications Home Medications and Allergies Home Medications ?Medication ?Instructions ?Recorded ?Confirmed ?Type amlodipine 5 mg tablet 5 mg PO QDAY 02/02/24 05/07/24 History metoprolol succinate 100 mg 100 mg PO QDAY 02/02/24 05/07/24 History tablet,extended release 24 hr naproxen 500 mg tablet,delayed 500 mg PO BID 02/02/24 05/07/24 History release (EC-Naproxen) norgestrel 0.3 mg-ethinyl 1 tab PO QDAY 02/02/24 05/07/24 History estradiol 30 mcg tablet (Low-Ogestrel (28)) tizanidine 6 mg capsule 6 mg PO BID PRN Pain, Mild 02/02/24 05/07/24 History Held on 05/01/24. Instructions: Resume on 05/02/24. Allergies Allergy/AdvReac Type Severity Reaction Status Date / Time No Known Allergies Allergy Verified 01/02/25 21:33 Visit Medications Acetaminophen (Acetaminophen 325 Mg Tablet) 650 mg PO Q6H PRN PRN Reason: Fever >101.5 Stop: 02/02/25 12:31 Aspirin (Aspirin Ec 81 Mg Tabec) 81 mg PO QDAY [facility] Stop: 02/03/25 08:59 Atorvastatin Calcium (Atorvastatin Calcium 20 Mg Tablet) 80 mg PO HS [facility] Stop: 02/02/25 20:59 Heparin Sodium (Porcine) (Heparin Sod Inj 5000 Unit/Ml Vial) 5,000 unit SC Q8HR [facility] Stop: 01/17/25 13:59 Last Admin: 01/03/25 13:24 Dose: 5,000 unit Hydralazine HCl (Hydralazine Inj 20 Mg/Ml Vial) 10 mg IVP Q6H PRN PRN Reason: SBP>220, DBP>120 Stop: 02/02/25 12:59 Sodium Chloride (Ns) 1,000 mls @ 75 mls/hr IV .[id number] [facility] Stop: 02/02/25 12:44 Last Admin: 01/03/25 13:22 Dose: 75 mls/hr Piperacillin Sod/Tazobactam (Sod 4.5 gm/ Sodium Chloride) 100 mls @ 200 mls/hr IV Q8HR [facility] Stop: 01/03/25 15:00 Last Infusion: 01/03/25 13:58 Dose: Infused Vancomycin HCl 1,500 mg/ (Sodium Chloride) 500 mls @ 198 mls/hr IV X1 ONE Stop: 01/03/25 15:16 Last Admin: 01/03/25 13:57 Dose: 198 mls/hr Piperacillin/Tazobactam/Dextrose (Zosyn) 3.375 gm in 50 mls @ 100 mls/hr IV Q8HR [facility]E Stop: 01/10/25 21:59 Potassium Chloride (Kcl Ivpb) 10 meq in 100 mls @ 100 mls/hr IV Q1H [facility] Stop: 01/03/25 16:41 Last Admin: 01/03/25 14:32 Dose: 100 mls/hr Ondansetron HCl (Ondansetron Inj 2 Mg/Ml Inj 2 Ml) 4 mg IV Q4HR PRN PRN Reason: NAUSEA OR VOMITING Stop: 02/01/25 23:54 Pharmacy Consult (Vancomycin Pharmacy To Dose 1 Each Each) 1 each IV QDAY [facility]EVE Stop: 02/02/25 12:44 Discontinued Medications Aspirin (Aspirin 81 Mg Chew) 324 mg PO X1 ONE Stop: 01/03/25 02:41 Last Admin: 01/03/25 04:25 Dose: Not Given Clopidogrel Bisulfate (Clopidogrel Bisulfate 75 Mg Tablet) 75 mg PO X1 ONE Stop: 01/03/25 02:41 Last Admin: 01/03/25 04:25 Dose: Not Given Sodium Chloride (Ns) 1,641 mls @ 1,641 mls/hr 30 ml/kg infuse over 60 min (1641 ml) IV .Q1H ONE Stop: 01/03/25 01:45 Last Infusion: 01/03/25 02:35 Dose: Infused Ceftriaxone Sodium 1,000 mg/ (Sodium Chloride) 50 mls @ 100 mls/hr IV X1 ONE Stop: 01/03/25 01:15 Last Infusion: 01/03/25 01:49 Dose: Infused Naloxone HCl 2 mg/ Dextrose 500 mls @ 10 mls/hr IV .Q24H ONE Stop: 01/04/25 04:07 Last Infusion: 01/03/25 07:39 Dose: 0 mls/hr Meropenem 1,000 mg/ Sodium (Chloride) 50 mls @ 100 mls/hr IV X1 ONE Stop: 01/03/25 05:06 Last Infusion: 01/03/25 06:14 Dose: Infused Lorazepam (Lorazepam 2 Mg/Ml Vial) 2 mg IVP X1 ONE Stop: 01/03/25 00:39 Last Admin: 01/03/25 01:30 Dose: 2 mg Morphine Sulfate (Morphine Sulf Inj 10 Mg/Ml Vial) 4 mg IVP X1 ONE Stop: 01/03/25 00:47 Last Admin: 01/03/25 00:55 Dose: 4 mg Naloxone HCl (Naloxone Inj 1 Mg/Ml Syringe 2 Ml) 2 mg IV X1 ONE Stop: 01/03/25 00:29 Last Admin: 01/03/25 00:34 Dose: 2 mg Naloxone HCl (Naloxone Inj 1 Mg/Ml Syringe 2 Ml) 2 mg IV X1 ONE Stop: 01/03/25 04:22 Last Admin: 01/03/25 04:28 Dose: 2 mg Assessment & Plan Plan 49-year-old female with past medical history of hypertension, kidney stones, and 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 #Acute encephalopathy #Slurred speech, resolved #Possible seizure? #Stroke rule out ?Patient came in with altered mental status and as per patient's son was at bedside stated that yesterday patient when he went to wake her up she was more difficult to wake up and that she was trying to speak, but she was having difficulty pronouncing words. ? Patient on physical exam had a lesion in the tip of the tongue which could be tongue biting from seizure-like activity. ? DDx include encephalitis versus meningitis from pyelonephritis versus postictal state from seizure versus stroke versus TIA ?NIHSS score 10 ?CTA head and neck showed 9% stenosis of right vertebral artery and 80% stenosis of left posterior cerebellar artery ?CT head was unremarkable ?Teleneuro consulted in ED Plan: ?Aspirin and atorvastatin started ?Neurochecks every 4 hours ?Allow permissive hypertension ?Head of bed elevation to 30 degrees ?Echo and MRI pending ordered ? EEG ordered ?Aspiration precautions ?Seizure precautions -Consult in-hospital neurology, appreciate recommendations -Referred to speech and physical therapy #Left pyelonephritis #UTI #Hematuria #Hx of kidney stone left ureteral s/p stent Patient was seen in our ED 2 months ago when she was transfer for ureteral stent placement. This time patient came in with UA positive for 2135 WBC as well as 4660 RBC as well as positive for nitrates and leukocytes esterase Abdomen/pelvis CT showed left pyelonephritis ESR 104 and CRP 7.4 Plan: Started vancomycin and Zosyn (01/03/2025?) Will continue to monitor #Normocytic normochromic anemia Patient's hemoglobin 10.6 on admission Baseline 13.1 on 10/2024 Most likely hemodilutional No active signs of bleeding Plan: Will continue to monitor #Hypokalemia Patient getting potassium 3.2 Plan: 40 mEq of potassium IV Will continue completing necessary #Hx of hypertension Allowing permissive hypertension for now Disposition: Patient admitted to telemetry for Acute encephalopathy 2/2 possible stroke vs seizures vs encephalitis vs meningitis. Diet: NPO GI prophylaxis: not indicated DVT prophylaxis: heparin subcu Code: Full Case disclosed with Attending Dr. Urvashi Orr PGY1 Attending Provider Attestation/Addendum I attest that I was physically present for the evaluation, physical examination, lab and imaging review of the patient with the residents. I discussed the case with the residents and agree with the findings and plans of care as documented above. Patient is a 49 years old female with past medical history of hypertension, kidney stones and cervical nerve impingement who presented to the ED with complaint of altered mental status. About 2 months back, patient received stent placement for her kidney stones at [facility]. Following which she has been having on and off fever, about every other day. But since yesterday evening around 8 PM, patient started becoming very sleepy, confused and the family decided to bring her to the ED. At bedside, patient appears sleepy, wakes up on calling but has hard time following, and, was not able to answer all questions, was repeating same answer or sentence multiple times, which as per the family is not her baseline. Patient also noted to have tongue bite, family denied bowel or urinary incontinence, abnormal shaking of the body, abnormal blinking or staring. Patient has overall decreased strength bilaterally but no focal deficit could be elicited. In the ED, her vitals were stable, except for blood pressure of 143/78. Lab results show hemoglobin of 10.6, ESR 104, potassium 3.2, BUN/creatinine 17/1.2, CRP 7.4. Stroke alert was called, patient underwent head CT, which was negative for acute hemorrhage, mass effect or midline shift. CTA head and neck shows 90% stenosis of origin right vertebral artery, 80% stenosis left posterior cerebral artery junction of P1 and P2. After examination of the patient and review of clinical data I feel that this patient needs admission to the hospital for further treatment/evaluation of acute encephalopathy in setting of pyelonephritis. Patient has normal WBC count, normal lactate level negative procalcitonin, not enough to justify her level of altered mentation. We will try to rule out stroke, seizure episode, possible encephalitis. We will obtain brain MRI, EEG, echocardiography, in-house neurology consult, speech and physical therapy evaluation. We will continue with aspirin, atorvastatin and allow permissive hypertension. We will also start aspiration and seizure precautions. Patient is started on IV vancomycin and Zosyn for her UTI. Repleted her potassium. Rosetta Landin MD
[2025-01-03 16:01] LABS: HCG,Qualitative Serum Negative
--- NOTE | 2025-01-03 16:15 | PD.RESCONSUL ---
HPI Data of Consult Requesting Physician: Rosetta Landin MD Admitting Provider: Rosetta Landin MD Attending Provider: Rosetta Landin MD Primary Care Provider: Physician No Primary/Family Consult Narrative Reason for consult: altered mental status History of present illness: The patient is a 49-year-old female with a previous medical history of hypertension, hyperlipidemia, nephrolithiasis s/p stent placement, neck pain who was admitted to the hospital on 01/03/2025 due to altered mental status. Per patient she does not remember the events that led to her being in the ED and she remembers only being in the ED. Her son reports that approximately at 8 PM the previous day he went in to check on her, she was sleeping, he tried to wake her up but she was somnolent, speech was slurred. She also was nauseous, vomited. Patient reports that she has been experiencing fevers in the last few days. She reports neck pain, general weakness, feeling dizzy and reports that she took some pain medication, but does not remember the name. In the ED blood pressure was 143/78, heart rate 79, respiratory rate 16, afebrile, saturating well on room air. Head CT was negative for acute hemorrhage, mass effect or midline shift, head and neck CTA showed 90% stenosis in origin of right vertebral artery, 80% stenosis of left posterior cerebral artery junction P1 and P2 segments. Teleneurologist was consulted, differential diagnosis included toxic encephalopathy, stroke and nonconvulsive status epilepticus. Labs showed WBC count 6.7, hemoglobin 10.6, hematocrit 31.5, 257. INR 1.1. ABG showed pH 7.43, [id number], PO2 116. Sodium 142, potassium 3.2, chloride 107, creatinine 1.2 EGFR 56, glucose 153, calcium 9.4, magnesium 2.4, C-reactive protein 7.4 cholesterol 181, LDL 126, HDL 29, vitamin B12 885, folate 12.62, procalcitonin 0.27, TSH 1.41. UA was positive for signs of UTI with pyuria, hematuria, blood 3+, WBC 2000 135, RBC 4660, positive leukocyte esterase, positive nitrates. U tox was positive for opiates. Abdomen/pelvis CT showed liver cysts, left pyelonephritis, cystitis pattern. In the ED she received naloxone 2 mg x 3, morphine 4 mg x 1, lorazepam 2 mg x 1, ceftriaxone 1 g, fluids 30 mg/kg, meropenem 1 g x 1 and was started on Zosyn and vancomycin, IV potassium. Neurology was consulted for altered mental status. On the moment of examination patient mentation has improved, she is able to hold conversation, answer questions, follow commands. After careful questioning, patient reveals that in 2019 she had significant stress ( cheated) and that she is feeling depressed and sometimes thinks about those events. Pending MRI brain. Allergies: denies Medications: med rec is pending Surgeries: left ureteral stent placement cc:: cc: Rosetta Landin MD Review of Systems Review of Systems Systems Reviewed: All systems reviewed, normal except as documented Past Medical History Past Medical History NEUROLOGIC: Positive Neurological Disorders and Migraine CARDIAC: Positive Cardiac Disorders, Hypercholesterolemia and Hypertension REPRODUCTIVE: Positive Previous Pregnancies MUSCULOSKELETAL: Positive Musculoskeletal Disorders and Arthritis OTHER HISTORY: Positive Chicken Pox Surgical History SURGICAL: Positive Oral Surgery (wisdom x4 extraction) Social History SMOKING STATUS: Never smoker SUBSTANCE USE: does not use Exam Vital Signs Temp Pulse Resp BP Pulse Ox O2 Del Method 98.5 F 84 10 L 155/88 H 100 Room Air 01/03/25 16:00 01/03/25 16:00 01/03/25 16:00 01/03/25 16:00 01/03/25 16:01/03/25 16:00 Narrative Exam Gen: Well-developed and well-nourished. HEENT: NCAT, PERRLA, EOMI, MMM, anicteric conjunctivae. CVS: normal S1 and S2. RRR. No M/R/G. Resp: CTA B/L. No rhonchi, rales, crackles or wheezing. Abd: soft, non-tender, non-distended. BS+ in all 4 quadrants. MSK: Good ROM in BUE & BLE. No edema or rash. Neuro: Alert, CN II-XII grossly intact. Patient reports that it's hard to move her eyes. Moves all 4 extremities, generally weak. Sensation's intact. Careful gait, able stand up and sit on the bed. Results Labs 01/02/25 23:55 01/03/25 00:08 Labs: Short CBC 01/02/25 Range/Units 23:55 WBC 6.7 (3.6-11.0) Thou/mm3 Hgb 10.6 L (12.0-16.0) g/dL Hct 31.5 L (36.0-46.0) % Plt Count 257 (140-440) Thou/mm3 BMP 01/03/25 00:08 Sodium 142 Potassium 3.2 L Chloride 107 Carbon Dioxide 22.1 BUN 17 Creatinine 1.2 Glucose 153 H Calcium 9.4 Cardiac Enzymes 01/03/25 01/03/25 Range/Units 00:08 13:17 Total Creatine Kinase 42 (34-171) U/L Troponin I < 0.002 (0.0-0.045) ng/mL Liver Function 01/03/25 Range/Units 00:08 Total Bilirubin 0.4 (0.3-1.2) mg/dL AST 39 H (0-34) U/L ALT 29 (10-49) U/L Alkaline Phosphatase 86 (46-116) U/L Albumin 4.7 (3.5-5.0) gm/dL Urine 01/02/25 Range/Units 23:59 Urine Color Drk-[place] A (Lt Yel-Yel) Urine Clarity Turbid A (Clear/Hazy) Urine pH 6.0 (5.0-7.0) Ur Specific [place] 1.021 (1.001-1.035) Urine Protein 2+ A (Neg - Trace) Urine Glucose (UA) Negative (Negative) ABG Interpretation ABG results: 01/03/25 01/03/25 04:27 05:30 ABG pH 7.43 ABG pCO2 33 ABG pO2 116 H ABG HCO3 22 ABG O2 Saturation 99 H ABG Base Excess -2 VBG pH 7.46 VBG pCO2 30 L VBG pO2 37 VBG Base Excess -2 Quality Measures Quality Measures stroke Suspected type of Stroke: Unknown at this time Tenecteplase given: Reason(s) Tenecteplase not given: Outside the time window not given Rehab services: PT evaluation ordered VTE Prophylaxis: pharmaceutical Antithrombotic by day 2:: ordered Statin ordered: <75 y/o high intensity dose Anticoagulation ordered for A-fib or flutter (current or hx): not indicated Medications Home Medications and Allergies Home Medications ?Medication ?Instructions ?Recorded ?Confirmed ?Type amlodipine 5 mg tablet 5 mg PO QDAY 02/02/24 05/07/24 History metoprolol succinate 100 mg 100 mg PO QDAY 02/02/24 05/07/24 History tablet,extended release 24 hr naproxen 500 mg tablet,delayed 500 mg PO BID 02/02/24 05/07/24 History release (EC-Naproxen) norgestrel 0.3 mg-ethinyl 1 tab PO QDAY 02/02/24 05/07/24 History estradiol 30 mcg tablet (Low-Ogestrel (28)) tizanidine 6 mg capsule 6 mg PO BID PRN Pain, Mild 02/02/24 05/07/24 History Held on 05/01/24. Instructions: Resume on 05/02/24. Allergies Allergy/AdvReac Type Severity Reaction Status Date / Time No Known Allergies Allergy Verified 01/02/25 21:33 Visit Medications Acetaminophen (Acetaminophen 325 Mg Tablet) 650 mg PO Q6H PRN PRN Reason: Fever >101.5 Stop: 02/02/25 12:31 Aspirin (Aspirin Ec 81 Mg Tabec) 81 mg PO QDAY STEVE Stop: 02/03/25 08:59 Atorvastatin Calcium (Atorvastatin Calcium 20 Mg Tablet) 80 mg PO HS STEVE Stop: 02/02/25 20:59 Heparin Sodium (Porcine) (Heparin Sod Inj 5000 Unit/Ml Vial) 5,000 unit SC Q8HR STEVE Stop: 01/17/25 13:59 Last Admin: 01/03/25 13:24 Dose: 5,000 unit Hydralazine HCl (Hydralazine Inj 20 Mg/Ml Vial) 10 mg IVP Q6H PRN PRN Reason: SBP>220, DBP>120 Stop: 02/02/25 12:59 Sodium Chloride (Ns) 1,000 mls @ 75 mls/hr IV .[id number] [facility] Stop: 02/02/25 12:44 Last Admin: 01/03/25 13:22 Dose: 75 mls/hr Piperacillin/Tazobactam/Dextrose (Zosyn) 3.375 gm in 50 mls @ 100 mls/hr IV Q8HR STEVE Stop: 01/10/25 21:59 Potassium Chloride (Kcl Ivpb) 10 meq in 100 mls @ 100 mls/hr IV Q1H STEVE Stop: 01/03/25 16:41 Last Admin: 01/03/25 16:00 Dose: 75 mls/hr Ondansetron HCl (Ondansetron Inj 2 Mg/Ml Inj 2 Ml) 4 mg IV Q4HR PRN PRN Reason: NAUSEA OR VOMITING Stop: 02/01/25 23:54 Pharmacy Consult (Vancomycin Pharmacy To Dose 1 Each Each) 1 each IV QDAY STEVE Stop: 02/02/25 12:44 Last Admin: 01/03/25 14:36 Dose: Not Given Discontinued Medications Aspirin (Aspirin 81 Mg Chew) 324 mg PO X1 ONE Stop: 01/03/25 02:41 Last Admin: 01/03/25 04:25 Dose: Not Given Clopidogrel Bisulfate (Clopidogrel Bisulfate 75 Mg Tablet) 75 mg PO X1 ONE Stop: 01/03/25 02:41 Last Admin: 01/03/25 04:25 Dose: Not Given Sodium Chloride (Ns) 1,641 mls @ 1,641 mls/hr 30 ml/kg infuse over 60 min (1641 ml) IV .Q1H ONE Stop: 01/03/25 01:45 Last Infusion: 01/03/25 02:35 Dose: Infused Ceftriaxone Sodium 1,000 mg/ (Sodium Chloride) 50 mls @ 100 mls/hr IV X1 ONE Stop: 01/03/25 01:15 Last Infusion: 01/03/25 01:49 Dose: Infused Naloxone HCl 2 mg/ Dextrose 500 mls @ 10 mls/hr IV .Q24H ONE Stop: 01/04/25 04:07 Last Infusion: 01/03/25 07:39 Dose: 0 mls/hr Meropenem 1,000 mg/ Sodium (Chloride) 50 mls @ 100 mls/hr IV X1 ONE Stop: 01/03/25 05:06 Last Infusion: 01/03/25 06:14 Dose: Infused Piperacillin Sod/Tazobactam (Sod 4.5 gm/ Sodium Chloride) 100 mls @ 200 mls/hr IV Q8HR [facility] Stop: 01/03/25 15:00 Last Infusion: 01/03/25 13:58 Dose: Infused Vancomycin HCl 1,500 mg/ (Sodium Chloride) 500 mls @ 198 mls/hr IV X1 ONE Stop: 01/03/25 15:16 Last Admin: 01/03/25 13:57 Dose: 198 mls/hr Lorazepam (Lorazepam 2 Mg/Ml Vial) 2 mg IVP X1 ONE Stop: 01/03/25 00:39 Last Admin: 01/03/25 01:30 Dose: 2 mg Morphine Sulfate (Morphine Sulf Inj 10 Mg/Ml Vial) 4 mg IVP X1 ONE Stop: 01/03/25 00:47 Last Admin: 01/03/25 00:55 Dose: 4 mg Naloxone HCl (Naloxone Inj 1 Mg/Ml Syringe 2 Ml) 2 mg IV X1 ONE Stop: 01/03/25 00:29 Last Admin: 01/03/25 00:34 Dose: 2 mg Naloxone HCl (Naloxone Inj 1 Mg/Ml Syringe 2 Ml) 2 mg IV X1 ONE Stop: 01/03/25 04:22 Last Admin: 01/03/25 04:28 Dose: 2 mg Assessment & Plan Plan The patient is a 49-year-old female with a previous medical history of hypertension, nephrolithiasis s/p stent placement, neck pain who was admitted to the hospital on 01/03/2025 due to altered mental status. #Acute encephalopathy #Stroke rule out #Dizziness Ddx: acute stroke vs toxic and/or metabolic encephalopathy. Patient was noted to altered at approximately 8 pm the day before admission. Imaging was negative for acute stroke, CTA showed 90% stenosis in origin of right vertebral artery, 80% stenosis of left posterior cerebral artery junction P1 and P2 segments. UA was positive for signs of UTI. U tox was positive for opiates. Plan: ? Telemetry ? Neurochecks every 4 hours ? Swallow screen ? Speech therapy eval ? Physical therapy eval ? DVT prophylaxis ? Head of bed elevation 30 degrees ? Euglycemia normothermia ? Aspirin 81 mg daily - Atorvastatin 80 mg qday - medication reconcilliation - MRI brain #Depression Patient has experienced significant stress, Plan: - follow-up outpatient #Left pyelonephritis #UTI #Hematuria #Nephrolithiasis, s/p left ureteral stent #Normocytic normochromic anemia #Hypokalemia #Hypertension - management per primary team Plan of care discussed with attending Dr. Coon. Angelina Friedman MD, PGY 1. Attending Provider Attestation/Addendum I personally have seen and examined the patient at the bedside and I agree with resident's findings, assessment and plan of care. Will continue with the current management and will fu with MRI brain. Subjective memory loss recently experiencing could have been secondary to underlying stress rather than neurocognitive disorder.
--- NOTE | 2025-01-03 17:37 | PC.NURSE ---
MRI CALLED ASKING TO ADD SURGERIES TO MRI SCREENING. ED RN CALLED SERVICE ADMINISTRATOR IF THEY'D BE ABLE TO ADD SURGERIES TO MRI SCREENING
[2025-01-03] MEDS: ATORVASTATIN CALCIUM 20 MG TABLET 80 MG PO (21:45)
[2025-01-03] MEDS: LIDOCAINE 5% 1 PATCH TOP (21:46)
[2025-01-03] MEDS: PIPER/TAZO 3.375 GM PREMIX 3.375 GM/50 ML BAG IV (21:57)
[2025-01-04] VITALS (8 sets, daily range): BP systolic 144–165; BP diastolic 83–94; PULSE 88–122; RESP 10–23; TEMP 36.3–36.7; O2SAT 97–100
--- NOTE | 2025-01-04 | XR_ITS ---
Examinations: MRI Brain without intravenous contrast. MRA brain without intravenous contrast. MRA carotids without intravenous contrast 3-D vascular reconstructions Date and time of exam: January 04, 2025 1216 hours Indication: Altered mental status CT stroke alert brain scan January 03, 2025 Technique: Multiple axial and sagittal images of the brain have been obtained MRA brain carotid images without contrast obtained, including 3-D postprocessing, vascular maximum intensity projection images Findings: [place] is not enlarged. The optic chiasm and infundibular stalk are not remarkable. Prepontine and interpeduncular cisterns are not enlarged. No localized enlargement of the medulla or vega. Fourth ventricle and cerebellar tonsils normal in position. Subacute hemorrhage is not seen. Fourth ventricle is midline. Mass in the cerebellopontine angle region is not evident. 7th and 8th nerve complexes exhibits symmetry. Globes are symmetrical with no retro-orbital mass. Increased white matter signal evident, scattered punctate foci increased signal in the white matter especially frontal white matter for instance FLAIR image 15 Diffusion-weighted images demonstrate no focus of restricted diffusion Mass-effect upon the ventricular system is not identified. MRA carotid images degraded by patient motion. MRA brain images technically limited, no large vessel occlusions Impression: Negative for acute hemorrhage mass effect or midline shift No acute infarct Multiple punctate foci increased signal in the white matter, demyelinating disease
[2025-01-04] MEDS: ACETAMINOPHEN 325 MG TABLET 650 MG PO (02:40)
[2025-01-04] MEDS: SODIUM CHLORIDE 0.9% 1000 ML 1,000 ML 75 ML IV (05:33)
[2025-01-04] MEDS: PIPER/TAZO 3.375 GM PREMIX 3.375 GM/50 ML BAG IV ×3 (05:34→21:24)
[2025-01-04] MEDS: HEPARIN SOD INJ 5000 UNIT/ML VIAL SC ×3 (05:34→21:24)
[2025-01-04 06:11] LABS: Collection Type, Urine Clean Catch; Squamous Epithelial Cell,Urine 0 /hpf (0-5)
[2025-01-04 06:15] LABS: Basophils % (Auto) 1 % (0-2.5); Eosinophils # (Auto) 0.1 Thou/mm3 (0.0-0.5); Eosinophils % (Auto) 3 % (0-10); Hematocrit 29.3 % (36.0-46.0); Hemoglobin 9.9 g/dL (12.0-16.0); Immature Granulocytes % (Auto) 0 % (0-0); Immature Granulocytes Auto 0.02 Thou/mm3 (0.00-0.00); Lymphocytes # (Auto) 1.3 Thou/mm3 (1.0-4.8); Lymphocytes % (Auto) 26 % (10-50); Mean Corpuscular HGB Conc 33.8 g/dl (31.0-37.0); Mean Corpuscular Hemoglobin 28.9 pg (25.0-35.0); Mean Corpuscular Volume 85 fL (80-100); Monocytes # (Auto) 0.4 Thou/mm3 (0.0-0.8); Monocytes % (Auto) 8 % (0-12); Neutrophils # (Auto) 3.1 Thou/mm3 (1.8-7.7); Neutrophils % (Auto) 63 % (37-80); Nucleated Red Blood Cell % 0 /100 WBC (0); Platelet Count 226 Thou/mm3 (140-440); RDW Standard Deviation 43.6 fL (36.4-46.3); Red Blood Count 3.43 Miln/mm3 (4.00-5.20); White Blood Count 4.9 Thou/mm3 (3.6-11.0)
[2025-01-04 06:25] LABS: Bilirubin,Urine Negative (Negative); Blood,Urine 3+ (Negative); Clarity,Urine Turbid (Clear/Hazy); Color,Urine Yellow (Lt Yel-Yel); Glucose, Urine Negative (Negative); Ketones,Urine 1+ (Negative); Leukocyte Esterase,Urine Positive (Negative); Nitrite,Urine Negative (Negative); PH,Urine 7.5 (5.0-7.0); Protein,Urine Trace (Neg - Trace); RBC,Urine 1063 /hpf (0-3); Specific Gravity,Urine 1.011 (1.001-1.035); Urobilinogen,Urine Negative mg/dL (0.0-1.0); WBC,Urine 51 /hpf (0-5)
[2025-01-04 06:41] LABS: Alanine Aminotransferase 19 U/L (10-49); Albumin, Serum 4.2 gm/dL (3.5-5.0); Albumin/Globulin Ratio 1.4 (1.2-2.2); Alkaline Phosphatase 75 U/L (46-116); Anion Gap 14 (7-16); Aspartate Amino Transferase 22 U/L (0-34); BUN/Creatinine Ratio 8 Ratio (12-20); Bilirubin,Total 0.5 mg/dL (0.3-1.2); Blood Urea Nitrogen 7 mg/dL (9-23); Calcium 8.8 mg/dL (8.3-10.6); Calcium (Corrected) 8.8 mg/dL (8.5-10.1); Carbon Dioxide 22.2 mMol/L (20.0-31.0); Chloride 108 mMol/L (98-107); Creatinine (Component) 0.9 mg/dL (0.6-1.3); Estimated Creatinine Clearance 77.9 mL/min (>60); Globulin 3.1 gm/dL (2.3-3.5); Glucose 94 mg/dL (74-106); Osmolality,Calculated 284 (275-295); Phosphorous 2.8 mg/dL (2.4-5.1); Potassium 3.4 mMol/L (3.4-5.1); Sodium 144 mMol/L (136-145); Total Protein 7.3 gm/dL (5.7-8.2); eGFR > 60 See Note
[2025-01-04] MEDS: ASPIRIN EC 81 MG TABEC PO (08:29)
[2025-01-04] MEDS: POTASSIUM CHL 10 mEq IVPB 10 MEQ/100 ML BAG 100 MEQ IV ×4 (08:29→13:06)
--- NOTE | 2025-01-04 08:47 | PCS.ST ---
Swallow Evaluation completed per stroke protocol. No dysphagia. Regular diet consistencies ok.
[2025-01-04] MEDS: VANCOMYCIN/D5W 1,250 MG IVPB 250 ML 120 MG IV (09:36)
--- NOTE | 2025-01-04 10:08 | ESPR_ITS ---
Documentation for date of: 01/04/25 Subjective Subjective Interval history: Patient was seen and examined at bedside this morning. No acute overnight events. Neurology saw the patient yesterday and stated that patient did have some possible stressors that could have contributed to the patient's current situation. Patient had a brain MRI done today and it showed multiple punctate foci of increased signal in the white matter which could be possible demyelinating disease. Patient this morning was more alert and awake and was able to hold a conversation, but was still having issues remembering things and was was having fixation as well as answering questions that were not asked. Otherwise patient's labs have been stable and she had no new complaints other than some neck pain and burning sensation with urination. Exam Vital Signs Temp Pulse Resp BP Pulse Ox O2 Del Method 97.7 F 88 18 165/85 H 100 Room Air 01/04/25 08:00 01/04/25 08:00 01/04/25 08:00 01/04/25 08:00 01/04/25 08:00 01/04/25 08:00 Narrative Exam General: A/O x3, no acute distress Eyes: PERRL, EOMI. Anicteric, vision grossly intact. Ears: No ear pain, no ear discharge, Hearing grossly intact. Nose: No nasal discharge. Mouth/Throat: Moist mucous membranes, no redness, no new lesions Neck: Neck supple, non-tender, no cervical lymphadenopathy. Lungs: Clear RADHA to auscultation and percussion, No accessory muscle use. Cardio: Normal S1/S2, regular rhythm, no murmurs, no JVD Abdomen: Soft, non-tender, no palpable masses, peristalsis present, no guarding or rebound. Extremities: Symmetrical, no significant deformities, no peripheral edema , non-tender, peripheral pulses presents. Skin: No rashes, no lesions, warm to touch. Neuro: No focal neurological deficits. Following all commands able to move all extremities and no sensory deficits. Patient still fixating on setting answers and has been answering questions that have not been as as if she did not understand questions being asked. Objective Labs 01/05/25 04:41 01/05/25 04:41 Labs: Laboratory Results - last 24 hr 01/03/25 01/04/25 01/04/25 13:17 02:20 05:00 WBC 4.9 RBC 3.43 L Hgb 9.9 L Hct 29.3 L MCV 85 MCH 28.9 MCHC 33.8 RDW Std Deviation 43.6 Plt Count 226 D Neut % (Auto) 63 Lymph % (Auto) 26 [place] % (Auto) 8 Eos % (Auto) 3 Baso % (Auto) 1 Neut # (Auto) 3.1 Lymph # (Auto) 1.3 [place] # (Auto) 0.4 Eos # (Auto) 0.1 Baso # (Auto) 0.0 Immature Gran # (Auto) 0.02 H Absolute Nucleated RBC 0.00 Immature Gran % 0 Nucleated RBC % 0 ESR 104 H Sodium 144 Potassium 3.4 Chloride 108 H Carbon Dioxide 22.2 Anion Gap 14 BUN 7 L Creatinine 0.9 Estim Creat Clear Calc 77.9 eGFR > 60 BUN/Creatinine Ratio 8 L Glucose [address] Glu mg/dL 105 Hemoglobin A1c 5.3 Calculated Osmolality 284 Lactic Acid 1.0 Calcium 8.8 Corrected Calcium 8.8 Phosphorus 2.8 Magnesium 2.0 Total Bilirubin 0.5 AST 22 ALT 19 Alkaline Phosphatase 75 Total Creatine Kinase 42 C-Reactive Prot, Quant 7.4 H Total Protein 7.3 Albumin 4.2 D Globulin 3.1 Albumin/Globulin Ratio 1.4 Triglycerides 128 Cholesterol 181 LDL Cholesterol, Calc 126 HDL Cholesterol 29 L Cholesterol/HDL Ratio 6.2 H Vitamin B12 885 Folate 12.62 TSH 1.41 HCG, Qual Negative Ur Collection Type Clean Catch Urine Color Yellow Urine Clarity Turbid A Urine pH 7.5 H Ur Specific [place] 1.011 Urine Protein Trace Urine Glucose (UA) Negative Urine Ketones 1+ A Urine Blood 3+ A Urine Nitrite Negative Urine Bilirubin Negative Urine Urobilinogen (Auto) Negative Ur Leukocyte Esterase Positive Urine RBC 1063 H Urine WBC 51 H Ur Squamous Epith Cells 0 Urine Bacteria None ABG Interpretation ABG results: 01/03/25 01/03/25 04:27 05:30 ABG pH 7.43 ABG pCO2 33 ABG pO2 116 H ABG HCO3 22 ABG O2 Saturation 99 H ABG Base Excess -2 VBG pH 7.46 VBG pCO2 30 L VBG pO2 37 VBG Base Excess -2 Quality Measures Quality Measures stroke Suspected type of Stroke: Unknown at this time Tenecteplase given: Reason(s) Tenecteplase not given: Outside the time window not given Rehab services: PT evaluation ordered and Speech Language Pathology eval ordered VTE Prophylaxis: pharmaceutical Antithrombotic by day 2:: not indicated (describe) Statin ordered: <75 y/o high intensity dose Anticoagulation ordered for A-fib or flutter (current or hx): not indicated Assessment & Plan Assessment Current Active Medications: Generic Name Dose Route Start Last Admin Trade Name Freq PRN Reason Stop Dose Admin Acetaminophen 650 mg 01/04/25 02:31 01/04/25 02:40 Acetaminophen 325 Mg Tablet PO 02/03/25 02:30 650 mg Q6HR PRN Administration PAIN 1-3 OR FEVER > 101 Aspirin 81 mg 01/04/25 09:00 01/04/25 08:29 Aspirin Ec 81 Mg Tabec PO 02/03/25 08:59 81 mg QDAY STEVE Administration Atorvastatin Calcium 80 mg 01/03/25 21:00 01/03/25 21:45 Atorvastatin Calcium 20 Mg Tablet PO 02/02/25 20:59 80 mg HS STEVE Administration Heparin Sodium (Porcine) 5,000 unit 01/03/25 14:00 01/04/25 05:34 Heparin Sod Inj 5000 Unit/Ml Vial SC 01/17/25 13:59 5,000 unit Q8HR STEVE Administration Hydralazine HCl 10 mg 01/03/25 12:52 Hydralazine Inj 20 Mg/Ml Vial IVP 02/02/25 12:59 Q6H PRN SBP>220, DBP>120 Sodium Chloride 1,000 mls @ 75 mls/hr 01/03/25 12:45 01/04/25 05:33 Ns IV 02/02/25 12:44 75 mls/hr .[id number] STEVE Administration Piperacillin/Tazobactam/Dextrose 3.375 gm in 50 mls @ 100 mls/hr 01/03/25 22:00 01/04/25 05:34 Zosyn IV 01/10/25 21:59 12.5 mls/hr Q8HR STEVE Administration Vancomycin HCl/Dextrose 250 mls @ 120 mls/hr 01/04/25 10:00 01/04/25 09:36 Vancomycin/D5w 1,250 Mg Ivpb IV 01/11/25 09:59 120 mls/hr Q24H STEVE Administration Potassium Chloride 10 meq in 100 mls @ 100 mls/hr 01/04/25 08:12 01/04/25 09:38 Kcl Ivpb IV 01/04/25 12:11 100 mls/hr Q1H STEVE Administration Ondansetron HCl 4 mg 01/02/25 23:55 Ondansetron Inj 2 Mg/Ml Inj 2 Ml IV 02/01/25 23:54 Q4HR PRN NAUSEA OR VOMITING Pharmacy Consult 1 each 01/03/25 12:45 01/03/25 14:36 Vancomycin Pharmacy To Dose 1 Each Each IV 02/02/25 12:44 Not Given QDAY STEVE Plan 49-year-old female with past medical history of hypertension, kidney stones, and 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 #Acute encephalopathy, improving #Slurred speech, resolved #Possible seizure? #Demyelinating disease? #Stroke rule out ?Patient came in with altered mental status and as per patient's son was at bedside stated that yesterday patient when he went to wake her up she was more difficult to wake up and that she was trying to speak, but she was having difficulty pronouncing words. ? Patient on physical exam had a lesion in the tip of the tongue which could be tongue biting from seizure-like activity. ? DDx include encephalitis versus meningitis from pyelonephritis versus postictal state from seizure versus stroke versus TIA ?NIHSS score 1 ?CTA head and neck showed 9% stenosis of right vertebral artery and 80% stenosis of left posterior cerebellar artery ?CT head was unremarkable ?Teleneuro consulted in ED -MRI showed multiple punctate foci of increased signal send the white matter which could be demyelinating disease. Plan: ?Continue Aspirin and atorvastatin ?Neurochecks every 4 hours ?Allow permissive hypertension ?Head of bed elevation to 30 degrees ?Echo and EEG pending ?Aspiration precautions ?Seizure precautions -Consult in-hospital neurology, appreciate recommendations -Referred to speech and physical therapy #Left pyelonephritis #UTI #Hematuria #Hx of kidney stone left ureteral s/p stent Patient was seen in our ED 2 months ago when she was transfer for ureteral stent placement. This time patient came in with UA positive for 2135 WBC as well as 4660 RBC as well as positive for nitrates and leukocytes esterase Abdomen/pelvis CT showed left pyelonephritis ESR 104 and CRP 7.4 No spike in WBC or fevers Plan: Continue vancomycin and Zosyn (01/03/2025?) Will continue to monitor #Normocytic normochromic anemia Patient's hemoglobin 10.6 on admission and today 9.9 Baseline 13.1 on 10/2024 Most likely hemodilutional No active signs of bleeding Plan: Will continue to monitor #Hypokalemia Patient getting potassium 3.4 Plan: Will continue completing necessary #Hx of hypertension Allowing permissive hypertension for now Disposition: Pending neuro reccs Diet: Cardiac GI prophylaxis: not indicated DVT prophylaxis: heparin subcu Code: Full Case disclosed with Attending Dr. Urvashi Orr PGY1 Attending Provider Attestation/Addendum I attest that I was physically present for the evaluation, physical examination, lab and imaging review of the patient with the residents. I discussed the case with the residents and agree with the findings and plans of care as documented above. At bedside today, patient is alert and awake, oriented, able to answer questions and follow commands but appears mildly slow and has trouble with remembering. Was able to move all her extremities, no focal neurological neurology has been following closely, appreciate recommendations Brain MRI was completed, it was negative for acute hemorrhage, mass effect, midline shift or infarct but showed multiple punctate foci of increased signal seen in white matter. Neurology has been following closely, appreciate recommendations. Was evaluated by speech therapy and physical therapy, patient passed speech and was able to ambulate without help. Awaiting EEG and echocardiography results. Rosetta Landin MD
--- NOTE | 2025-01-04 15:23 | PC.SS ---
Initial assessment: this is 49 year old female admitted for AMS. Patient information received from spouse, Terrell Petersen. Patient resides at home with spouse. Spouse confirmed demographic information. Etrrell identified as the patient's emergency contact. Patient does not require use of DME in the home, receives some assistance with ADL's. Patient PCP Dr. Lopez. Patient to return home upon discharge. Family is able to transport. No current needs identified. D/c plan: Home Next of kin: spouse, Terrell
--- NOTE | 2025-01-04 19:51 | PD.NEUROPROG ---
Documentation for date of: 01/04/25 Exam - Neurology Vital Signs Temp Pulse Resp BP Pulse Ox O2 Del Method 97.6 F 104 H 10 L 148/86 H 99 Room Air 01/04/25 16:00 01/04/25 16:00 01/04/25 16:00 01/04/25 16:00 01/04/25 16:00 01/04/25 16:00 Objective Labs 01/04/25 05:00 01/04/25 05:00 Labs: Laboratory Results - last 24 hr 01/04/25 01/04/25 02:20 05:00 WBC 4.9 RBC 3.43 L Hgb 9.9 L Hct 29.3 L MCV 85 MCH 28.9 MCHC 33.8 RDW Std Deviation 43.6 Plt Count 226 D Neut % (Auto) 63 Lymph % (Auto) 26 [place] % (Auto) 8 Eos % (Auto) 3 Baso % (Auto) 1 Neut # (Auto) 3.1 Lymph # (Auto) 1.3 [place] # (Auto) 0.4 Eos # (Auto) 0.1 Baso # (Auto) 0.0 Immature Gran # (Auto) 0.02 H Absolute Nucleated RBC 0.00 Immature Gran % 0 Nucleated RBC % 0 Sodium 144 Potassium 3.4 Chloride 108 H Carbon Dioxide 22.2 Anion Gap 14 BUN 7 L Creatinine 0.9 Estim Creat Clear Calc 77.9 eGFR > 60 BUN/Creatinine Ratio 8 L Glucose 94 D Calculated Osmolality 284 Calcium 8.8 Corrected Calcium 8.8 Phosphorus 2.8 Magnesium 2.0 Total Bilirubin 0.5 AST 22 ALT 19 Alkaline Phosphatase 75 Total Protein 7.3 Albumin 4.2 D Globulin 3.1 Albumin/Globulin Ratio 1.4 Ur Collection Type Clean Catch Urine Color Yellow Urine Clarity Turbid A Urine pH 7.5 H Ur Specific [place] 1.011 Urine Protein Trace Urine Glucose (UA) Negative Urine Ketones 1+ A Urine Blood 3+ A Urine Nitrite Negative Urine Bilirubin Negative Urine Urobilinogen (Auto) Negative Ur Leukocyte Esterase Positive Urine RBC 1063 H Urine WBC 51 H Ur Squamous Epith Cells 0 Urine Bacteria None ABG Interpretation ABG results: 01/03/25 01/03/25 04:27 05:30 ABG pH 7.43 ABG pCO2 33 ABG pO2 116 H ABG HCO3 22 ABG O2 Saturation 99 H ABG Base Excess -2 VBG pH 7.46 VBG pCO2 30 L VBG pO2 37 VBG Base Excess -2
[2025-01-04] MEDS: ATORVASTATIN CALCIUM 20 MG TABLET 80 MG PO (21:23)
[2025-01-05] VITALS: BP 140/89; PULSE 109; PULSE 97; RESP 14; TEMP 36.6; O2SAT 99
[2025-01-05 04:00] VITALS: BP 122/85; PULSE 104; PULSE 73; RESP 13; TEMP 36.3; O2SAT 100
[2025-01-05] MEDS: PIPER/TAZO 3.375 GM PREMIX 3.375 GM/50 ML BAG IV (05:13)
[2025-01-05] MEDS: HEPARIN SOD INJ 5000 UNIT/ML VIAL SC (05:14)
[2025-01-05 06:10] LABS: Basophils % (Auto) 1 % (0-2.5); Eosinophils # (Auto) 0.2 Thou/mm3 (0.0-0.5); Eosinophils % (Auto) 4 % (0-10); Hematocrit 31.4 % (36.0-46.0); Hemoglobin 10.5 g/dL (12.0-16.0); Immature Granulocytes % (Auto) 1 % (0-0); Immature Granulocytes Auto 0.04 Thou/mm3 (0.00-0.00); Lymphocytes # (Auto) 1.4 Thou/mm3 (1.0-4.8); Lymphocytes % (Auto) 30 % (10-50); Mean Corpuscular HGB Conc 33.4 g/dl (31.0-37.0); Mean Corpuscular Hemoglobin 28.8 pg (25.0-35.0); Mean Corpuscular Volume 86 fL (80-100); Monocytes # (Auto) 0.3 Thou/mm3 (0.0-0.8); Monocytes % (Auto) 7 % (0-12); Neutrophils # (Auto) 2.7 Thou/mm3 (1.8-7.7); Neutrophils % (Auto) 58 % (37-80); Nucleated Red Blood Cell % 0 /100 WBC (0); Platelet Count 195 Thou/mm3 (140-440); RDW Standard Deviation 43.7 fL (36.4-46.3); Red Blood Count 3.65 Miln/mm3 (4.00-5.20); White Blood Count 4.7 Thou/mm3 (3.6-11.0)
[2025-01-05 06:31] LABS: Alanine Aminotransferase 17 U/L (10-49); Albumin, Serum 4.2 gm/dL (3.5-5.0); Albumin/Globulin Ratio 1.3 (1.2-2.2); Alkaline Phosphatase 80 U/L (46-116); Anion Gap 11 (7-16); Aspartate Amino Transferase 20 U/L (0-34); BUN/Creatinine Ratio 7 Ratio (12-20); Bilirubin,Total 0.7 mg/dL (0.3-1.2); Blood Urea Nitrogen 7 mg/dL (9-23); Calcium 9.2 mg/dL (8.3-10.6); Calcium (Corrected) 9.2 mg/dL (8.5-10.1); Carbon Dioxide 23.7 mMol/L (20.0-31.0); Chloride 108 mMol/L (98-107); Estimated Creatinine Clearance 70.1 mL/min (>60); Globulin 3.3 gm/dL (2.3-3.5); Glucose 95 mg/dL (74-106); Magnesium 2.1 mg/dL (1.6-2.6); Osmolality,Calculated 282 (275-295); Phosphorous 3.7 mg/dL (2.4-5.1); Potassium 3.5 mMol/L (3.4-5.1); Sodium 143 mMol/L (136-145); Total Protein 7.5 gm/dL (5.7-8.2); eGFR > 60 See Note
[2025-01-05 08:00] VITALS: BP 131/90; PULSE 92; RESP 15; TEMP 36.2; O2SAT 98
[2025-01-05] MEDS: ASPIRIN EC 81 MG TABEC PO (09:04)
[2025-01-05] MEDS: POTASSIUM CHLORIDE 20 mEq TABCR PO (09:04)
[2025-01-05] MEDS: VANCOMYCIN/D5W 1,250 MG IVPB 250 ML 120 MG IV (09:33)
[2025-01-05 09:43] VITALS: BMI 29.8
[2025-01-05] MEDS: cefuroxime axetiL 250 MG TABLET PO (10:03)
[2025-01-05 10:37] VITALS: PULSE 96; RESP 12; O2SAT 99
--- NOTE | 2025-01-05 11:58 | ESDS_ITS ---
Planned Discharge Date 01/05/25 DS: Providers Provider Date of admission: 01/03/25 12:32 Primary care physician: Physician No Primary/Family Admitting Provider: Rosetta Landin MD Attending Provider on Admission: Rosetta Landin MD Consults: 01/02/25 23:55 Consult to Neurology / Tele-Neurology Routine Comment: Consulting Provider: [facility] 01/03/25 12:35 Consult to Neurology / Tele-Neurology Routine Comment: Altered mental status, fever Consulting Provider: Boubacar Coon Referral Physical Therapy Routine Comment: Physician Instructions: Referral Speech Therapy Routine Comment: Attending Provider on DC: Rosetta Landin MD Discharging Provider: Rosetta Landin MD DS: Diagnosis Problem List Completed Was Problem List Reviewed/Reconciled?: Yes Hospital Course Hospital Course Hospital course: 49-year-old female with past medical history of hypertension, kidney stones, and 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 Came into the ED with complaints of altered mental status and stroke alert was called this time.Initially patient came in hypertensive and afebrile. Initial labs were relevant for low hemoglobin (10.6), elevated ESR (104), ABG was unremarkable, hypokalemia (3.2), elevated CRP (7.4), and UA was positive for leukocytes esterase, nitrates, RBCs and WBCs. 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 Patient also had abdomen/pelvis CT which showed left pyelonephritis. Patient was seen by teleneurology who stated that patient follow the for possible toxic encephalopathy possible strokes or possible seizures. Patient underwent MRI which showed multiple punctate foci of increased signal in the white matter which could have been demyelinating disease, but in-house neurologist saw the patient and stated that these were most likely chronic white matter changes from hypertension. Stroke was ruled out at this time. Patient was placed on IV antibiotics and urine culture grew E. coli therefore antibiotics were switched to Keflex. Patient did not spike any fevers and WBCs did not spike throughout the hospital stay and she remained stable. Neurology also stated that patient was having some stressors in her life which could have also been contributing to patient's current symptoms and recommended the patient see a therapist as outpatient to help coping with the stressors. At the time of discharge patient was stable enough to be discharged home. Discharge plan: Please follow her primary care physician within 1 week upon discharge. Please follow-up with primary care physician for echocardiogram results. Please follow-up with neurologist in 1 to 2 weeks after discharge. Please follow-up with your urologist outpatient for your stent. Please follow-up outpatient with your primary care physician for ultrasound of your liver due to incidental finding of [address] Please continue taking cefuroxime 250 mg twice daily for total of 12 more days. Would recommend psychiatric counseling for possible stress. Please continue taking all home medications as prescribed. Please come back to the ER if symptoms persist or develop fever or chills. Problem list: #Acute encephalopathy, improving #Slurred speech, resolved #Stress #Left pyelonephritis #UTI, E. Coli #Hematuria #Hx of kidney stone left ureteral s/p stent #Normocytic normochromic anemia #Incidental liver lesions #Hypokalemia, resolved #Hx of hypertension #Stroke ruled out Case disclosed with Attending Dr. Urvashi Orr PGY1 Status at Discharge Overall status at discharge: patient is progressing back to baseline Time Spent with Patient Time attestation: Total time spent providing and/or coordinating discharge services:29 min Time spent: Less than 30 minutes Exam Vital Signs Temp Pulse Resp BP Pulse Ox O2 Del Method 97.2 F 96 12 131/90 H 99 Room Air 01/05/25 08:00 01/05/25 10:37 01/05/25 10:37 01/05/25 08:00 01/05/25 10:37 01/05/25 08:00 Narrative Exam General: A/O x3, no acute distress Eyes: PERRL, EOMI. Anicteric, vision grossly intact. Ears: No ear pain, no ear discharge, Hearing grossly intact. Nose: No nasal discharge. Mouth/Throat: Moist mucous membranes, no redness, no new lesions Neck: Neck supple, non-tender, no cervical lymphadenopathy. Lungs: Clear RADHA to auscultation and percussion, No accessory muscle use. Cardio: Normal S1/S2, regular rhythm, no murmurs, no JVD Abdomen: Soft, non-tender, no palpable masses, peristalsis present, no guarding or rebound. Extremities: Symmetrical, no significant deformities, no peripheral edema , non-tender, peripheral pulses presents. Skin: No rashes, no lesions, warm to touch. Neuro: No focal neurological deficits. Following all commands able to move all extremities and no sensory deficits. Doing better today Discharge Plan Plan Patient Disposition: HOME (Self Care) Patient condition on transfer: Stable Care Plan Goals: Please follow her primary care physician within 1 week upon discharge. Please follow-up with primary care physician for echocardiogram results. Please follow-up with neurologist in 1 to 2 weeks after discharge. Please follow-up with your urologist outpatient for your stent. Please follow-up outpatient with your primary care physician for ultrasound of your liver due to incidental finding of [address] Please continue taking cefuroxime 250 mg twice daily for total of 12 more days. Would recommend psychiatric counseling for possible stress. Please continue taking all home medications as prescribed. Please come back to the ER if symptoms persist or develop fever or chills. Prescriptions/Referrals Prescriptions/Med Rec: New cefuroxime axetil 250 mg Tablet 250 mg PO BID 12 Days Qty: 24 0RF Continued Low-Ogestrel (28) 0.3-30 mg-mcg tablet 1 tab PO QDAY metoprolol succinate 100 mg tablet extended release 24 hr 100 mg PO HS amlodipine 5 mg tablet 5 mg PO QDAY furosemide 40 mg tablet 40 mg PO DAILY Patient Comments: TAKE 1 TABLET BY MOUTH EVERY DAY Held tizanidine 6 mg capsule 6 mg PO BID PRN (Reason: Pain, Mild) Hold Instructions: Resume on 01/11/25. Hold until seen by primary care physician Discontinued naproxen [EC-Naproxen] 500 mg tablet,delayed release (DR/EC) 500 mg PO BID Referrals: No Primary/Family,Physician [Primary Care Provider] - Patient/Caregiver Discharge Instructions Other Discharge Activity Instructions:: Please follow her primary care physician within 1 week upon discharge. Please follow-up with primary care physician for echocardiogram results. Please follow-up with neurologist in 1 to 2 weeks after discharge. Please follow-up with your urologist outpatient for your stent. Please follow-up outpatient with your primary care physician for ultrasound of your liver due to incidental finding of [address] Please continue taking cefuroxime 250 mg twice daily for total of 12 more days. Would recommend psychiatric counseling for possible stress. Please continue taking all home medications as prescribed. Please come back to the ER if symptoms persist or develop fever or chills. Education Materials: Urinary Tract Infections in Women, Kidney Infec Dc Print Language: Cam[place]onian Stand Alone Forms: [facility] Award Info., Patient Portal Info Letter Discharge Order Discharge Orders: Discharge (Routine); Ordered 01/05/25 Ordered By: Ayush Orr Quality Discharge Quality Measures VTE prophylaxis MD Attestestation MD Attestation I attest that I was physically present for the evaluation, physical examination, lab and imaging review of the patient with the residents. I discussed the case with the residents and agree with the findings and plans of care as documented above. At bedside today, patient continues to feel better, appears comfortable. Denies any new complaints, more alert, awake and able to follow commands. She also states her memory is better today and was able to engage in conversation better. Discussed with neurology, stated that MRI findings are most likely to be due to chronic vascular changes from her chronic hypertension. Agreed that patient's symptoms might be contributed from her stress. Vital signs are stable today, lab results are stable as well. Urine culture grew E. coli sensitive to current regimen. Patient is stable for discharge to home on oral antibiotics. Advised to follow-up with PCP, neurology and psychiatry. Rosetta Landin MD
[2025-01-05 12:00] VITALS: BP 149/90; PULSE 110; PULSE 115; RESP 30; TEMP 36.2; O2SAT 99
[2025-01-05 14:40] VITALS: BP 134/90; PULSE 100; RESP 16; TEMP 36.3; O2SAT 97
== END 2025-01-05 14:55 | disposition home or self-care (01) | DRG 71 ==
LOC: SERX 23:41 → SERHOLD 01-03 12:53 → S2NX 01-03 17:51
PROVIDERS: Internal Medicine; Physician Assistant; Admitting Provider Student in an Organized Health Care Education/Training Program; Emergency Provider Emergency Medicine; Visit Provider Student in an Organized Health Care Education/Training Program
DX: G93.41 Metabolic encephalopathy (principal); N12 Tubulo-interstitial nephritis, not specified as acute or chronic; I10 Essential (primary) hypertension; R47.81 Slurred speech; D64.9 Anemia, unspecified; E87.6 Hypokalemia; F32.A Depression, unspecified; R31.9 Hematuria, unspecified; N20.0 Calculus of kidney; E78.00 Pure hypercholesterolemia, unspecified; I65.01 Occlusion and stenosis of right vertebral artery; I66.22 Occlusion and stenosis of left posterior cerebral artery; N30.90 Cystitis, unspecified without hematuria; K76.89 Other specified diseases of liver; Z87.442 Personal history of urinary calculi; B96.20 Unspecified Escherichia coli [E. coli] as the cause of diseases classified elsewhere
CPT/HCPCS: 36415; 36600; 70450; 70496; 70498; 70544; 74176; 80053; 80061; 80307; 80320; 80329; 81001; 82140; 82550; 82607; 82746; 82803; 83036; 83605; 83615; 83690; 83735; 83880; 84100; 84145; 84443; 84484; 84703; 85025; 85610; 85652; 85730; 86140; 87040; 87077; 87086; 87186; 87400; 87811; 92610; 93005; 93306; 95816; 96361; 96365; 96366; 96367; 96368; 96375; 97162; 99285; A4649; J0696; J1644; J2060; J2185; J2270; J2310; J2543; J3370; J3480; J3490; J7030; J7040; J7050; J7060; Q9967; A9270; G0480

== ENCOUNTER → 2025-05-22 | Outpatient (CLI) | payer MEDICAID, SELFPAY ==
--- NOTE | 2025-05-22 15:15 | XR_ITS ---
Examination: Screening digital mammography, bilateral Computer aided detection 3-D breast Tomosynthesis, bilateral Date and time of exam: May 22 0 25, 1519 hours, compared to mammograms dating to June 10, 2017 Indication: Screening Technique: Nonmagnified MLO, CC views of the breasts to been obtained, reconstructed from 3-D Tomosynthesis images. R2 computer aided detection program utilized for evaluation of suspicious masses and/or abnormal calcifications. 3-D Tomosynthesis images obtained. Findings: The breasts are heterogeneously dense, which may obscure small masses Benign calcifications No interval suspicious masses Impression: BI-RADS category II: Benign Findings. Recommend 1 year follow-up mammogram.
== END | disposition home or self-care (01) ==
PROVIDERS: PCP Family Medicine; Referring Provider Specialist; Visit Provider Specialist
DX: Z12.31 Encounter for screening mammogram for malignant neoplasm of breast (principal); R92.323 Mammographic fibroglandular density, bilateral breasts; R92.1 Mammographic calcification found on diagnostic imaging of breast
CPT/HCPCS: 77063; 77067